=== PATIENT | female | born 1980 | race Caucasian/White ===

== ENCOUNTER → 2016-11-03 | Outpatient (CLI) | payer OTHER ==
[2016-11-03 09:02] VITALS: BP 142/91; PULSE 102; RESP 18; TEMP 97.9; BMI 52.2
--- NOTE | 2016-11-03 11:57 | P.GSHP ---
History of Present Illness H&P Date: 11/03/16 Chief Complaint: Morbid Obesity BMI 52.3 36 years old female with morbid obesity initial BMI 55.4, height 5 feet 7.5inches, weight 162.92 kgs (359.3 pounds) presents for bariatric surgery consultation. She has attended weight loss seminar and elected to undergo laparoscopic Cinda-en-Y gastric bypass. She has attempted nonsurgical weight loss with special diets and exercise regimen. She has lost some weight but is unable to maintain sustained results. Her comorbid conditions include obstructive sleep apnea on CPAP, hypothyroidism , fatty liver disease , migraine , Type 2 DM ,hypertensionand depression. She works at [employer]. He has given up fast food and is preparing home meals. No increase in physical activity since last visit. She has undergone 6 months supervised weight loss. She had H. Pylori positive and was treated with Prevpak. Initially evaluated in 2013 at the bariatric center. Her goal weight is between 182 -200 pounds Preoperative visit #1, 09/25/2014, weight 162.92 kgs, BMI 55.4 Preoperative visit # 2, 01/22/2015 , weight 162.64 kgs, BMI 55.3 Preoperative visit # 3, 11/03/2016 , [id number] kgs, BMI 52.3 - Review of Systems Comment: Constitutional: Denies fever, weight loss or loss of appetite HEENT: No difficulty in vision or hearing. Denies dysphagia. Cardiovascular: Denies chest pain, palpitations, dizziness, shortness of breath. Respiratory: No history of asthma . She has sleep apnea on CPAP Gastrointestinal: No recent change in bowel habits, no abdominal pain, no nausea or vomiting. She has intermittent reflux symptoms and undergone laparoscopic cholecystectomy Integumentary: Long-standing skin changes with intermittent skin breakdown in bilateral lower extremities. Genitourinary: No urinary incontinence, hematuria or dysuria Neurologic: No seizures, denies weakness in upper or lower extremities. History of migraines Musculoskeletal: No back pain or joint pain Psychiatry: Known history of depression, no suicidal ideation, no anxiety or psychosis Past Medical History Past Medical History: GERD/Reflux, Sleep Apnea/CPAP/BIPAP, Thyroid Disorder Additional Past Medical History / Comment(s): migraines, HSV History of Any Multi-Drug Resistant Organisms: None Reported Past Surgical History: Section, Cholecystectomy, Tubal Ligation Past Anesthesia/Blood Transfusion Reactions: Motion Sickness, Postoperative Nausea & Vomiting (PONV) Additional Past Anesthesia/Blood Transfusion Reaction / Comment(s): STATES NAUSEA WITH PAIN MEDS Past Psychological History: Depression Smoking Status: Never smoker Past Alcohol Use History: None Reported Past Drug Use History: None Reported - Past Family History Father Family Medical History: No Reported History Additional Family Medical History / Comment(s): of kidney failure Medications and Allergies Home Medications Medication Instructions Recorded Confirmed Type Pramipexole [Mirapex] 0.125 mg PO HS 10/10/14 11/03/16 History Ergocalciferol [Vitamin D2 50,000 unit PO QMONTH 01/22/15 11/03/16 History (DRISDOL)] Albuterol Sulfate [Proair Hfa] 1 - 2 puff INHALATION RT-Q6H PRN 07/22/16 History INSULIN LISPRO (HumaLOG) [HumaLOG] 20 units SQ TID-W/MEALS 07/22/16 11/03/16 History Insulin Glargine [Lantus] 120 unit SQ HS 07/22/16 11/03/16 History Lansoprazole [Prevacid] 30 mg PO DAILY 07/22/16 11/03/16 History Levothyroxine Sodium [Synthroid] 400 mcg PO DAILY 07/22/16 11/03/16 History Lisinopril [Zestril] 10 mg PO DAILY 07/22/16 11/03/16 History Vortioxetine Hydrobromide 20 mg PO DAILY 07/22/16 11/03/16 History [Trintellix] traMADol HCL [Ultram] 50 mg PO BID 07/22/16 11/03/16 History Lurasidone HCl [Latuda] 60 mg PO DAILY 11/03/16 11/03/16 History Nortriptyline [Pamelor] 50 mg PO DAILY 11/03/16 11/03/16 History Allergies Allergy/AdvReac Type Severity Reaction Status Date / Time No Known Allergies Allergy Verified 11/03/16 08:52 Surgical - Exam Vital Signs Temp Pulse Resp BP 97.9 F 102 H 18 142/91 11/03/16 08:51 11/03/16 08:51 11/03/16 08:51 11/03/16 08:51 General: Patient is alert and oriented to time, place and person and cooperative with exam. She is not in acute distress. HEENT: No pallor, no icterus, no thyroid enlargement, no cervical lymphadenopathy. Chest: Bilateral equal breath sounds present. No wheezes, no crackles. Cardiovascular: Regular rate and rhythm. Abdomen: Soft, nontender, nondistended. Well-healed surgical scars from lap gabby and Csection Integumentary: No active ulcers or discharge. Neurologic: Cranial nerves II-XII intact. Strength upper and lower extremities 5/5. No focal neurologic deficits. Gait is normal. Psychiatric: No anxiety or psychosis. No suicidal thoughts. Social history: She has 2 living children and has good social support system Assessment and Plan (1) Type 2 diabetes mellitus Status: Acute (2) Migraine Status: Acute (3) Sleep apnea Status: Acute (4) Hypothyroidism Status: Chronic (5) Morbid obesity with body mass index of 50 or higher Status: Chronic (6) H. pylori infection Status: Acute (7) Hypertension Status: Acute (8) Depression Status: Acute Plan: 1. A detailed discussion was held about the risks, benefits and potential complications of laparoscopic Cinda-en-Y gastric bypass including bleeding, infection, anastomosis leak, stenosis, DVT and PE. Patient demonstrated understanding and willing to undergo the procedure. Patient was explained about high-protein liquid diet 2 weeks prior to surgery 2. Formal Dietitian consult pending. I discussed about reducing the portion size, limiting refined carbohydrates and sugar and increase protein intake 3. Esophagogastroduodenoscopy - [place] 1 hiatal hernia. 4. Vitamin D deficiency. Taking supplements 5. Sleep study reviewed- adjust CPAP machine 6. Psychiatrist/ psychologist's recommendations pending 7. VTE risk score is 10. Patient will need perioperative and postoperative prophylactic low molecule weight heparin for VTE prophylaxis 8. Hypothyroidism- Management as per primary 9. Repeat labs. Stool for H. Pylori antigen 10 Tentaive surgery date November 2016
== END | disposition home or self-care (01) ==
LOC: BARWHC3 08:11
PROVIDERS: ATTEND Surgery
DX: Z01.818 Encounter for other preprocedural examination (principal); E66.01 Morbid (severe) obesity due to excess calories; Z68.43 Body mass index [BMI] 50.0-59.9, adult; E11.9 Type 2 diabetes mellitus without complications; G43.909 Migraine, unspecified, not intractable, without status migrainosus; G47.30 Sleep apnea, unspecified; Z99.89 Dependence on other enabling machines and devices; E03.9 Hypothyroidism, unspecified; A04.8 Other specified bacterial intestinal infections; I10 Essential (primary) hypertension; F32.9 Major depressive disorder, single episode, unspecified; Z79.899 Other long term (current) drug therapy; Z79.4 Long term (current) use of insulin
CPT/HCPCS: 99211

== ENCOUNTER → 2016-11-08 | Outpatient (CLI) | payer OTHER ==
[2016-11-08 11:16] LABS: EKG EKG PERFORMED
[2016-11-08 11:41] LABS: CH 23.4; CHCM 31.1; HCT 38.5 % (34.0-46.0); HDW 3.25; HGB 11.8 gm/dL (11.4-16.0); Hypochromasia Moderate; MCH 23.2 pg (25.0-35.0); MCHC 30.7 g/dL (31.0-37.0); MCV 75.5 fL (80.0-100.0); Mean Platelet Volume 7.9; Microcytosis Slight; RDW 15.9 % (11.5-15.5)
[2016-11-08 12:06] LABS: ALT 81 U/L (9-52); AST 79 U/L (14-36); Alkaline Phosphatase 136 U/L (38-126); Anion Gap 11 mmol/L; Blood Urea Nitrogen 9 mg/dL (7-17); Carbon Dioxide 28 mmol/L (22-30); Chloride 99 mmol/L (98-107); Cholesterol 241 mg/dL (<200); Glucose 161 mg/dL (74-99); HDL Cholesterol 55 mg/dL (40-60); Iron 40 ug/dL (37-170); Non-African American GFR(MDRD) >60 (>60 ml/min/1.73 sqM); Potassium 4.6 mmol/L (3.5-5.1); Sodium 138 mmol/L (137-145); Total Bilirubin 1.6 mg/dL (0.2-1.3); Total Protein 7.7 g/dL (6.3-8.2); Triglycerides 118 mg/dL (<150)
[2016-11-08 12:15] LABS: % Iron Saturation 9.3 % (20-50); Total Iron Binding Capacity 431 ug/dL (265-497)
[2016-11-08 13:10] LABS: Vitamin B12 574 pg/mL (239-931)
[2016-11-08 13:31] LABS: Hemoglobin A1C 8.9 % (4.2-6.1)
== END | disposition home or self-care (01) ==
LOC: LABWHC1 10:52
PROVIDERS: ATTEND Surgery
DX: E89.1 Postprocedural hypoinsulinemia (principal); D50.8 Other iron deficiency anemias; E44.0 Moderate protein-calorie malnutrition; E55.9 Vitamin D deficiency, unspecified; E11.9 Type 2 diabetes mellitus without complications; G47.30 Sleep apnea, unspecified; E66.01 Morbid (severe) obesity due to excess calories; Z68.43 Body mass index [BMI] 50.0-59.9, adult
CPT/HCPCS: 36415; 80053; 80061; 82306; 82607; 82728; 82746; 83036; 83540; 83550; 84425; 84443; 85027; 93005

== ENCOUNTER → 2016-11-24 | Outpatient (CLI) | payer OTHER ==
[2016-11-24 09:04] VITALS: BP 144/66; PULSE 886; RESP 18; TEMP 98.1; BMI 52.1
--- NOTE | 2016-11-24 10:22 | P.GSHP ---
History of Present Illness H&P Date: 11/24/16 Chief Complaint: Morbid Obesity BMI 52.3 36 years old female with morbid obesity initial BMI 55.4, height 5 feet 7.5inches, weight 162.92 kgs (359.3 pounds) presents for bariatric surgery consultation. She has attended weight loss seminar and elected to undergo laparoscopic Cinda-en-Y gastric bypass. She has attempted nonsurgical weight loss with special diets and exercise regimen. She has lost some weight but is unable to maintain sustained results. Her comorbid conditions include obstructive sleep apnea on CPAP, hypothyroidism , fatty liver disease , migraine , Type 2 DM ,hypertensionand depression. She works at [employer]. He has given up fast food and is preparing home meals. No increase in physical activity since last visit. She has undergone 6 months supervised weight loss. S he had H. Pylori positive and was treated with Prevpak. Stool for h.pylori negative.She has been non compliant with her thyroid medications. Sister mentions her thyroid hormone has been persistently low over many years Initially evaluated in 2013 at the bariatric center. Her goal weight is between 182 -200 pounds Preoperative visit #1, 09/25/2014, weight 162.92 kgs, BMI 55.4 Preoperative visit # 2, 01/22/2015 , weight 162.64 kgs, BMI 55.3 Preoperative visit # 3, 11/03/2016 , [id number] kgs, BMI 52.3 Preoperative visit # 4, 11/24/2016 , [id number] kgs, BMI 52.1 Review of Systems Constitutional: Denies fever, weight loss or loss of appetite HEENT: No difficulty in vision or hearing. Denies dysphagia. Cardiovascular: Denies chest pain, palpitations, dizziness, shortness of breath. Respiratory: No history of asthma . She has sleep apnea on CPAP Gastrointestinal: No recent change in bowel habits, no abdominal pain, no nausea or vomiting. She has intermittent reflux symptoms and undergone laparoscopic cholecystectomy Integumentary: Long-standing skin changes with intermittent skin breakdown in bilateral lower extremities. Genitourinary: No urinary incontinence, hematuria or dysuria Neurologic: No seizures, denies weakness in upper or lower extremities. History of migraines Musculoskeletal: No back pain or joint pain Psychiatry: Known history of depression, no suicidal ideation, no anxiety or psychosis Past Medical History Past Medical History: GERD/Reflux, Sleep Apnea/CPAP/BIPAP, Thyroid Disorder Additional Past Medical History / Comment(s): migraines, HSV History of Any Multi-Drug Resistant Organisms: None Reported Past Surgical History: Section, Cholecystectomy, Tubal Ligation Past Anesthesia/Blood Transfusion Reactions: Motion Sickness, Postoperative Nausea & Vomiting (PONV) Additional Past Anesthesia/Blood Transfusion Reaction / Comment(s): STATES NAUSEA WITH PAIN MEDS Past Psychological History: Depression Smoking Status: Never smoker Past Alcohol Use History: None Reported Past Drug Use History: None Reported - Past Family History Father Family Medical History: No Reported History Additional Family Medical History / Comment(s): of kidney failure Medications and Allergies Home Medications Medication Instructions Recorded Confirmed Type Pramipexole [Mirapex] 0.125 mg PO HS 10/10/14 11/03/16 History Ergocalciferol [Vitamin D2 50,000 unit PO QMONTH 01/22/15 11/03/16 History (DRISDOL)] Albuterol Sulfate [Proair Hfa] 1 - 2 puff INHALATION RT-Q6H PRN 07/22/16 History INSULIN LISPRO (HumaLOG) [HumaLOG] 20 units SQ TID-W/MEALS 07/22/16 11/03/16 History Insulin Glargine [Lantus] 120 unit SQ HS 07/22/16 11/03/16 History Lansoprazole [Prevacid] 30 mg PO DAILY 07/22/16 11/03/16 History Levothyroxine Sodium [Synthroid] 400 mcg PO DAILY 07/22/16 11/03/16 History Lisinopril [Zestril] 10 mg PO DAILY 07/22/16 11/03/16 History Vortioxetine Hydrobromide 20 mg PO DAILY 07/22/16 11/03/16 History [Trintellix] traMADol HCL [Ultram] 50 mg PO BID 07/22/16 11/03/16 History Lurasidone HCl [Latuda] 60 mg PO DAILY 11/03/16 11/03/16 History Nortriptyline [Pamelor] 50 mg PO DAILY 11/03/16 11/03/16 History Allergies Allergy/AdvReac Type Severity Reaction Status Date / Time No Known Allergies Allergy Verified 11/03/16 08:52 Past Medical History Past Medical History: Diabetes Mellitus, GERD/Reflux, Sleep Apnea/CPAP/BIPAP, Thyroid Disorder Additional Past Medical History / Comment(s): migraines, HSV History of Any Multi-Drug Resistant Organisms: None Reported Past Surgical History: Section, Cholecystectomy, Tubal Ligation Past Anesthesia/Blood Transfusion Reactions: Motion Sickness, Postoperative Nausea & Vomiting (PONV) Additional Past Anesthesia/Blood Transfusion Reaction / Comment(s): STATES NAUSEA WITH PAIN MEDS Past Psychological History: Depression Smoking Status: Never smoker Past Alcohol Use History: None Reported Past Drug Use History: None Reported - Past Family History Father Family Medical History: No Reported History Additional Family Medical History / Comment(s): of kidney failure Medications and Allergies Home Medications Medication Instructions Recorded Confirmed Type Pramipexole [Mirapex] 0.125 mg PO HS 10/10/14 11/24/16 History Ergocalciferol [Vitamin D2 50,000 unit PO QMONTH 01/22/15 11/24/16 History (DRISDOL)] Albuterol Sulfate [Proair Hfa] 1 - 2 puff INHALATION RT-Q6H PRN 07/22/16 History INSULIN LISPRO (HumaLOG) [HumaLOG] 20 units SQ TID-W/MEALS 07/22/16 11/24/16 History Insulin Glargine [Lantus] 120 unit SQ HS 07/22/16 11/24/16 History Lansoprazole [Prevacid] 30 mg PO DAILY 07/22/16 11/24/16 History Levothyroxine Sodium [Synthroid] 400 mcg PO DAILY 07/22/16 11/24/16 History Lisinopril [Zestril] 10 mg PO DAILY 07/22/16 11/24/16 History Vortioxetine Hydrobromide 20 mg PO DAILY 07/22/16 11/24/16 History [Trintellix] traMADol HCL [Ultram] 50 mg PO BID 07/22/16 11/24/16 History Lurasidone HCl [Latuda] 60 mg PO DAILY 11/03/16 11/24/16 History Nortriptyline [Pamelor] 50 mg PO DAILY 11/03/16 11/24/16 History Allergies Allergy/AdvReac Type Severity Reaction Status Date / Time No Known Allergies Allergy Verified 11/24/16 08:55 Surgical - Exam Vital Signs Temp Pulse Resp BP 98.1 F 886 H 18 144/66 11/24/16 08:58 11/24/16 08:58 11/24/16 08:58 11/24/16 08:58 General: Patient is alert and oriented to time, place and person and cooperative with exam. She is not in acute distress. HEENT: No pallor, no icterus, no thyroid enlargement, no cervical lymphadenopathy. Chest: Bilateral equal breath sounds present. No wheezes, no crackles. Cardiovascular: Regular rate and rhythm. Abdomen: Soft, nontender, nondistended. Well-healed surgical scars from lap gabby and Csection Integumentary: No active ulcers or discharge. Neurologic: Cranial nerves II-XII intact. Strength upper and lower extremities 5/5. No focal neurologic deficits. Gait is normal. Psychiatric: No anxiety or psychosis. No suicidal thoughts. Social history: She has 2 living children and has good social support system Assessment and Plan (1) Depression Status: Acute (2) Hypertension Status: Acute (3) Migraine Status: Acute (4) Sleep apnea Status: Acute (5) Type 2 diabetes mellitus Status: Acute (6) Hypothyroidism Status: Chronic (7) Morbid obesity with body mass index of 50 or higher Status: Chronic Plan: 1. A detailed discussion was held about the risks, benefits and potential complications of laparoscopic Cinda-en-Y gastric bypass including bleeding, infection, anastomosis leak, stenosis, DVT and PE. Patient demonstrated understanding and willing to undergo the procedure. Patient was explained about high-protein liquid diet 2 weeks prior to surgery 2. Formal Dietitian consult pending. I discussed about reducing the portion size, limiting refined carbohydrates and sugar and increase protein intake 3. Esophagogastroduodenoscopy - [place] 1 hiatal hernia. 4. Vitamin D deficiency. Taking supplements 30,000 Units weekly x 14 weeks 5. Sleep study reviewed- adjust CPAP machine 6. Psychiatrist/ psychologist's recommendations reviewed 7. VTE risk score is 10. Patient will need perioperative and postoperative prophylactic low molecule weight heparin for VTE prophylaxis 8. Refractory Hypothyroidism- Management as per primary- Referral given to bench worker binding in [place]. Please address this as uncorrected hypothyroidism will cause weight gain even after bariatric surgery 9. Cardiac clearance - Dr. Kate 10 Repeat CBC, CMP, TSH and Hba1c 11.Tentaive surgery date December 14, 2016
[2016-11-24 10:52] LABS: CH 23.4; HCT 38.3 % (34.0-46.0); HDW 3.26; HGB 11.8 gm/dL (11.4-16.0); Hypochromasia Moderate; MCH 23.4 pg (25.0-35.0); MCHC 30.9 g/dL (31.0-37.0); MCV 75.7 fL (80.0-100.0); Mean Platelet Volume 7.8; Microcytosis Slight; RBC 5.06 m/uL (3.80-5.40); RDW 15.4 % (11.5-15.5); WBC 7.6 k/uL (3.8-10.6)
[2016-11-24 11:13] LABS: ALT 59 U/L (9-52); AST 46 U/L (14-36); Alkaline Phosphatase 131 U/L (38-126); Anion Gap 11 mmol/L; Blood Urea Nitrogen 11 mg/dL (7-17); Calcium 8.9 mg/dL (8.4-10.2); Carbon Dioxide 26 mmol/L (22-30); Chloride 102 mmol/L (98-107); Glucose 170 mg/dL (74-99); Non-African American GFR(MDRD) >60 (>60 ml/min/1.73 sqM); Potassium 4.2 mmol/L (3.5-5.1); Sodium 139 mmol/L (137-145); Total Bilirubin 1.4 mg/dL (0.2-1.3); Total Protein 7.7 g/dL (6.3-8.2)
[2016-11-24 12:08] LABS: Hemoglobin A1C 8.7 % (4.2-6.1)
== END | disposition home or self-care (01) ==
LOC: BARWHC3 08:15
PROVIDERS: ATTEND Surgery
DX: Z01.818 Encounter for other preprocedural examination (principal); E66.01 Morbid (severe) obesity due to excess calories; Z68.43 Body mass index [BMI] 50.0-59.9, adult; E11.9 Type 2 diabetes mellitus without complications; Z79.4 Long term (current) use of insulin; F32.9 Major depressive disorder, single episode, unspecified; I10 Essential (primary) hypertension; G43.909 Migraine, unspecified, not intractable, without status migrainosus; G47.30 Sleep apnea, unspecified; E03.9 Hypothyroidism, unspecified; K21.9 Gastro-esophageal reflux disease without esophagitis; Z99.89 Dependence on other enabling machines and devices
CPT/HCPCS: 80053; 83036; 84443; 85027; G0463; 99211

== ENCOUNTER → 2016-12-14 | Outpatient (CLI) | payer OTHER ==
--- NOTE | 2016-12-14 19:36 | PN ---
This 36-year-old morbidly obese female patient has severe symptomatic obstructive sleep apnea. She has an AHI of 82 and she was initially treated with a CPAP pressure of 12 cm of water. During my last evaluation, the patient was having some difficulties in tolerating the CPAP machine, and her compliance was suboptimal. I was in the process of working with this patient to improve her tolerability and compliance; however, she was lost to followup for the past 1-1/2 years. She is coming in today for further advice. She is still symptomatic. She has not been able to use her CPAP on a regular basis. She is using a Mirage FX nose mask, which she thinks is uncomfortable, as air is leaking around the mask and around her eyes. She also has a worn-out tube which has a hole, and obviously it is leaking. She is interested in bariatric surgery. She is also interested in going back on her CPAP machine, knowing that she is still symptomatic, hypersomnolent and sleepy. I reevaluated this patient today in the office. I checked various masks, and I thought the AirFit N10 nose mask is the best type for this patient. This will give her the best seal and hopefully improve her compliance. Based on that, a prescription was given out to [facility]. I will also renew all of her CPAP supplies. The patient has no other complaints otherwise for now. Her interval history is negative for any new-onset medical problems or issues. BP is 145/88, pulse 104, respiration 16, temperature 97.4, saturation 97% on room air. Weight is 321. Height is 5 feet 7 inches. BMI is 50. GENERAL APPEARANCE: Obese, calm, comfortable. HEENT: Short neck. Crowding of posterior pharynx. No goiter or neck masses. LUNGS: Diminished breath sounds bilaterally. HEART: Sounds are regular rate and rhythm. Normal S1, S2. No S3. No S4. No murmurs. ABDOMEN: Soft, nontender. No organomegaly. Organs cannot be accurately palpated, as the patient is morbidly obese. EXTREMITIES: There is no edema. No cyanosis or clubbing. IMPRESSION: 1. Severe symptomatic obstructive sleep apnea with an AHI of 82. The patient is having difficulty tolerating her CPAP machine. She was set at a pressure of 12 cm of water and she was given earlier a Mirage FX nose pillow. 2. Excessive hypersomnia. 3. Obesity with a body mass index of 50. 4. Depression. 5. Hypothyroidism. PLAN: 1. Switch this patient to an automatic mode on her CPAP machine. I will give her a minimum pressure of 4 and maximum pressure of 12 on her Auto CPAP unit, and this will allow the patient to utilize lower pressures if possible. 2. Switch this patient to an AirFit N10 nose mask. 3. Encourage weight loss. 4. Encourage becoming more compliant with CPAP therapy. 5. See me back here in the sleep center in 6 months' time in followup for a compliancy recheck.
== END | disposition home or self-care (01) ==
LOC: SLEEP 15:25
PROVIDERS: ATTEND Internal Medicine Critical Care Medicine
DX: G47.33 Obstructive sleep apnea (adult) (pediatric) (principal); G47.10 Hypersomnia, unspecified; E66.9 Obesity, unspecified; Z68.43 Body mass index [BMI] 50.0-59.9, adult; F32.9 Major depressive disorder, single episode, unspecified; E03.9 Hypothyroidism, unspecified

== ENCOUNTER 2016-12-16 11:48 | Inpatient (IN) | payer OTHER ==
[~2016-12-16 11:48] MED LIST: AMPICILLIN-SULBACTAM 3 GM in SODIUM CHLORIDE 0.9% 100 ML IVPB ONE; CHLORHEXIDINE GLUCONATE 15 ML CUP MUCOUS MEM ONE; DEXAMETHASONE SOD PHOSPHATE 10 MG/ML 1 ML VIAL IV ONE; ENOXAPARIN 40 MG/0.4 ML SYRINGE SQ STA; HYDROmorphone 1 MG/ML 1 ML SYRINGE IVP PRN; LIDOCAINE 1% 20 ML VIAL (10MG/ML) FOR IV START INTRADERMA PRN; MIDAZOLAM 2 MG/2 ML VIAL IV PRN; ONDANSETRON 4 MG/2 ML VIAL IVP ONE; PANTOPRAZOLE 40 MG/10 ML VIAL IV STA; SCOPOLAMINE 1.5MG/72HR PATCH TRANSDERM ONE; ceFAZolin 3 GM in SODIUM CHLORIDE 0.9% 100 ML IVPB ONE
[2016-12-16] MEDS: LACTATED RINGERS 1,000 ML IV SCH (12:22)
[2016-12-16 12:41] LABS: Glucose,Whole Blood 135 mg/dL (75-99)
[2016-12-16] MEDS ORDERED: SUCCINYLCHOLINE CHLORIDE 100 MG/5 ML SYR IV ONE (13:15)
[2016-12-16] MEDS ORDERED: DEXAMETHASONE SOD PHOS (MDV) 100 MG/10 ML VIAL ONE (13:15)
[2016-12-16] MEDS ORDERED: MIDAZOLAM 2 MG/2 ML VIAL ONE (13:15)
[2016-12-16] MEDS ORDERED: ONDANSETRON 4 MG/2 ML VIAL ONE (13:15)
[2016-12-16] MEDS ORDERED: PROPOFOL 10 MG/ML 20 ML VIAL IV ONE (13:15)
[2016-12-16] MEDS ORDERED: LIDOCAINE 1% INJ 10MG/ML (20 ML MDV) ONE (13:15)
[2016-12-16] MEDS ORDERED: HYDROmorphone (PF) 1 MG/ML ONE (13:15)
[2016-12-16] MEDS ORDERED: GLYCOPYRROLATE 0.2 MG/ML 2 ML VIAL ONE (13:15)
[2016-12-16] MEDS ORDERED: ROCURONIUM BROMIDE 10 MG/ML 10 ML VIAL IV ONE (13:15)
[2016-12-16] MEDS ORDERED: NEOSTIGMINE 1 MG/ML 10 ML VIAL ONE (13:15)
[2016-12-16] MEDS ORDERED: LABETALOL 5 MG/ML VIAL MDV ONE (13:15)
[2016-12-16] MEDS ORDERED: METOPROLOL TARTRATE 5 MG/5 ML VIAL IVP ONE (13:15)
[2016-12-16] MEDS ORDERED: fentaNYL (PF) 50 MCG/ML 2 ML AMP ONE (13:15)
[2016-12-16] MEDS ORDERED: KETOROLAC 30 MG/ML 1 ML VIAL ONE (13:15)
[2016-12-16] MEDS ORDERED: KETAMINE 10 MG/ML 20 ML VIAL ONE (13:15)
[2016-12-16] MEDS ORDERED: LACTATED RINGERS 1,000 ML IV ONE ×3 (13:45→17:03)
[2016-12-16] MEDS ORDERED: BUPIVACAIN-EPI 0.25%-1:200,000 30 ML VIAL SQ ONE (13:47)
--- NOTE | 2016-12-16 18:52 | P.PCN ---
Date of Procedure: 12/16/16 Description of Procedure: PREOPERATIVE DIAGNOSIS: s/p Cinda-en-y gastric bypass. Morbid obesity. Gastroesophageal reflux disease. POSTOPERATIVE DIAGNOSIS: s/p Cinda-en-y gastric bypass. Morbid obesity. Gastroesophageal reflux disease. Foreign body gastric pouch OPERATION: Esophagogastroscopy with foreign body removal. Esophagogastrojejunoscopy, intraoperative. SURGEON: Theresa Nye MD ANESTHESIA: GETA INDICATIONS: The patient is a 36-year-old female who presents for a gastric bypass with Dr. Blanca. On request of Dr. Blanca, an intraoperative esophagogastroscopy followed by esophagogastrojejunoscopy was requested with benefits and risks described by attending surgeon. DESCRIPTION: Please see operative report of Dr. Blanca for gastric bypass. After creation of the gastric pouch, initially a 25 mm Covidien Orvil was placed along the posterior oropharynx down to the distal esophagus. Despite several attempts to place the Orvil, an endoscopic placement of the Orvil was proposed. I then went to the head of the bed whereby an Olympus gastroscope was passed along the posterior oropharynx down to distal esophagus. Using a laparoscope, the light of the gastroscope could be found along the inferior edge of the gastric pouch anterior to the staple line. An incomplete gastrotomy was identified. Using a cold forceps biopsy, the biopsy forceps was placed through the scope under direct utilization and actually penetrated through the initial gastrotomy. Via the abdomen, Dr. Blanca placed the snare through a 12-mm trocar and entered into the abdomen. The snare was navigated to the gastric pouch. Using the cold forceps biopsy, the snare was pulled through the gastric pouch and into the mouth. The the tip of the tubing of the Doon was then anchored using 0-Neurolon and secured to the snare with suture. The Orvil was then carefully guided through the posterior oropharynx via the esophagus and through the gastrotomy to complete the gastrojejunostomy portion of the gastric bypass. The snare was divided using endoscopic scissors by Dr. Blanca and the snare was removed from the abdomen. Upon completion of the gastric bypass, I went ahead the bed to perform an intraoperative EGJ. The scope was navigated down to distal esophagus. The pouch had minimal blood which was aspirated from the pouch. The stoma of the anastomosis was widely patent. No evidence of leak was found. This concluded the endoscopy portion of the case. The patient tolerated the procedure well. FINDINGS: Negative leak test. Patent 25 mm gastrojejunal anastomosis.
[2016-12-16] MEDS ORDERED: SIMETHICONE 40 MG/0.6 ML DROPS 2,000 MG/30 ML BOTTLE PO PRN (19:13)
[2016-12-16] MEDS ORDERED: NALOXONE 0.4 MG/ML 1 ML VIAL IV PRN (19:13)
[2016-12-16] MEDS ORDERED: ONDANSETRON 4 MG/2 ML VIAL IVP PRN (19:13)
[2016-12-16] MEDS ORDERED: HYOSCYAMINE ORAL DROPS 1.875 MG/15 ML BOTTLE PO PRN (19:13)
--- NOTE | 2016-12-16 19:22 | P.OP ---
Date of Procedure: 12/16/16 Preoperative Diagnosis: Morbid obesity, BMI 48.6, obstructive sleep apnea on CPAP, hypothyroidism , fatty liver disease , migraine , Type 2 DM , essential hypertension and depression Postoperative Diagnosis: Same Procedure(s) Performed: Laparoscopic antecolic antegastric bypass >200 cm of small bowel bypassed Intraop EGJ Implants: NA Anesthesia: MAURAA Surgeon: Celsa Blanca Ring Cutter Lathe Operator #1: Theresa Nye Estimated Blood Loss (ml): 30 Pathology: none sent Condition: stable Disposition: PACU Indications for Procedure: 37 years old female with morbid obesity initial BMI more than 50 with multiple comorbidities including obstructive sleep apnea on CPAP, hypothyroidism , fatty liver disease , migraine , Type 2 DM ,hypertension and depression presents for laparoscopic Cinda-en-Y gastric bypass possible open. Operative Findings: >200 cm of small bowel bypassed Description of Procedure: The patient was brought to the operating room and placed in supine position with both arms out. General anesthesia with endotracheal intubation was performed as per anesthesia team. A Rg catheter was inserted using sterile aseptic precautions. Bilateral lower extremity SCDs were placed. Patient was secured to the operating table using to secure straps and a footboard was placed. Chlorhexidine was used to prep the skin followed by sterile drapes and Ioban. A timeout was performed to verify correct patient and correct procedure. Patient was confirmed to receive perioperative IV antibiotics and Lovenox subcutaneous injection for VTE prophylaxis. A 1.5 cm skin incision was made in the left anterior axillary line below the costal margin and pneumoperitoneum was established to a pressure of 15 mm of Hg using a Veress needle. Patient tolerated the pneumoperitoneum well. A 10 mm trocar was loaded on a 5 mm 30 laparoscope and peritoneal cavity was entered using the Optiview technique. Additional 10 mm trocar was placed inferior and left of the umbilicus for a camera . Two 10 mm trocars working ports were placed : one at the level of falciform and the other in right lower quadrant. The abdominal cavity was inspected. Attention was directed towards creation of jejunojejunostomy. The omentum was reflected towards the upper abdomen and the transverse colon identified. The transverse mesocolon was elevated and ligament of Treitz identified. The small bowel was run 65 cm distal to the ligament of Treitz and was divided using Ethicon stapler 60 white load. There was noted bleeding noted from the cut end of the mesentery which was controlled with application of endoclips. A [place] drain was attached to the distal limb. The small bowel was run 160 cm distally from this point. It was oriented in C- configuration to avoid any torsion or kink. A seromuscular stitch of 3-0 silk was placed between the BP limb and the Cinda limb to act as a traction suture. Controlled enterotomy was created in either small bowel limb using monopolar function of LigaSure advance. Care was taken not to backwall the bowel. Covidien stapler 60 ramirez load was fired in antegrade direction to create a [id number] jejunojejunostomy. Additional seromuscular stitch of 3-0 silk was placed which acted as a distal stay suture . Covidien stapler 45 ramirez load was fired in retrograde direction to create a 90 mm [id number] anastomosis. The 2 stay sutures were pulled up and final enterotomy was closed using Covidien stapler 60 ramriez load. The anastomosis was patent and without any tension. There was some bleeding noted from the staple line which was controlled with endoclips. The greater omentum was divided using LigaSure . Patient was then placed in reverse Trendelenburg. A 5 mm incision was made in the epigastrium to insert the liver retractor to retract the left lobe of the liver. There were scar tissue and stitches from prior lap band surgery. Decision was made to go distal to this suture line to create a long narrow pouch The angle of His was bluntly mobilized using retrogastric tunneling device .Fenestrated graspers were used to bluntly dissect and create retrogastric tunnel. Covidien 60 staple purple load was fired . Additional two purple 60mm loads were used to create a 30 ml gastric pouch . A 25 mm Orvil was passed per orally by the anesthesia team. The orogastric blunt tip of the Orvil was positioned anterior to the staple line. A controlled opening was made in the gastric pouch using the monopolar function and Orvil tip was exteriorized. The orogastric tube was pulled without any tension till the Orvil stapler was identified. The suture was cut and the remaining tube was removed from the abdomen. The previously placed Yehuda drain was identified and the Cinda limb was brought up to the gastric pouch without any undue tension. The small bowel was opened up and left upper quadrant trocar site was upsized to a 15 mm. The 25 mm EEA was inserted into the abdomen after dilating the track with Puja clamp. The EEA was easily inserted via the cut end of the Cinda limb. The stapler was gradually opened till the orange ring was identified. The EEA stapler was fired after both ends of the stapler were locked in position and closed. The EEA was then removed from the abdomen. Both the anastomotic donuts were complete. A 60 mm Covidien ramirez white load was used to divide the open end of the Cinda limb. This segment of the small bowel along with Bre[place] drain was placed in an Endo Catch bag and was removed from the abdomen. A 15 mm balloon trocar was inserted to re-create pneumoperitoneum. The gastrojejunostomy anastomosis not show any evidence of kink or torsion. Using continuous sutures of 3-0 silk, the Marquez defect between the transverse mesocolon and Cinda limb was closed. The C loop configuration of Cinda limb was checked. The mesentery defect between the jejunojejunostomy was closed using continuous sutures of 3-0 silk. This is to prevent potential internal hernias. An empty staple cartridge was placed distal to the gastrojejunostomy in the Cinda limb. Dr. Nye proceeded with esophagogastrojejunoscopy. The abdominal cavity was filled with normal saline. No evidence of staple line bleeding. No anastomotic stricture. No air leak identified. The anastomosis was widely patent. The scope was then removed after suctioning the excess air. Tisseal was applied over the staple line. The 15 mm trocar site was closed with 2 trans-fascial stitches of 0 Vicryl which was placed using a Vinay Shyla device. The trocar site was copiously irrigated with 1 L of normal saline. All the trocar sites were closed with interrupted sutures of 3-0 Vicryl followed by running subcuticular stitches of 4-0 Monocryl. Dermabond skin glue was applied. The sponge, instrument and needle count were correct x2. Patient tolerated the procedure well and was taken to post anesthesia care unit in stable condition
[2016-12-16 19:27] LABS: Glucose,Whole Blood 214 mg/dL (75-99)
[2016-12-16] MEDS ORDERED: LABETALOL SYRINGE 5 MG/ML IVP ONE (19:34)
[2016-12-16] MEDS ORDERED: INSULIN LISPRO (humaLOG) 300 UNIT/3 ML VIAL SQ ONE (19:38)
[2016-12-16 20:35] VITALS: BMI 48.6
[2016-12-16] MEDS: ALBUTEROL NEBULIZED 2.5 MG/3 ML INHALATION SCH (21:03)
[2016-12-16] MEDS: HYDROmorphone 2 MG/ML 1 ML SYRINGE IVP PRN (22:34)
[2016-12-16] MEDS: 0.9% NACL WITH KCL 20 MEQ/L 1,000 ML IV SCH (23:55)
[2016-12-17 01:20] LABS: Glucose,Whole Blood 215 mg/dL (75-99)
[2016-12-17] MEDS: ACETAMINOPHEN IV (For NPO) 1,000 MG in EMPTY BAG 1 BAG IVPB SCH ×5 (01:20→23:44)
[2016-12-17] MEDS: INSULIN LISPRO (humaLOG) 300 UNIT/3 ML VIAL SQ SCH ×5 (01:25→21:30)
[2016-12-17] MEDS: HYDROmorphone 2 MG/ML 1 ML SYRINGE IVP PRN ×2 (01:33→21:28)
[2016-12-17] MEDS: 0.9% NACL WITH KCL 20 MEQ/L 1,000 ML IV SCH ×2 (02:54→16:31)
[2016-12-17 06:03] LABS: Glucose,Whole Blood 213 mg/dL (75-99)
[2016-12-17] MEDS: LACTATED RINGERS 1,000 ML IV SCH ×2 (06:12→16:45)
[2016-12-17 07:50] LABS: Anisocytosis Slight; Basophils % (A) 0 %; CH 24.4; CHCM 31.6; Eosinophils % (A) 0 %; HDW 3.13; HGB 11.1 gm/dL (11.4-16.0); Hypochromasia Slight; Luc # (Auto) 0.18; Luc % (Auto) 2; Lymphocytes % (A) 9 %; MCH 24.7 pg (25.0-35.0); MCHC 31.8 g/dL (31.0-37.0); MCV 77.6 fL (80.0-100.0); Mean Platelet Volume 8.3; Microcytosis Slight; Monocytes # (A) 0.4 k/uL (0-1.0); Monocytes % (A) 4 %; Neutrophils # (A) 9.5 k/uL (1.3-7.7); Neutrophils % (A) 85 %; RBC 4.51 m/uL (3.80-5.40); RDW 16.3 % (11.5-15.5); WBC 11.1 k/uL (3.8-10.6); WBC (Perox) 11.54
[2016-12-17 08:03] LABS: Anion Gap 11 mmol/L; Blood Urea Nitrogen 10 mg/dL (7-17); Calcium 8.3 mg/dL (8.4-10.2); Carbon Dioxide 24 mmol/L (22-30); Chloride 103 mmol/L (98-107); Magnesium 1.4 mg/dL (1.6-2.3); Non-African American GFR(MDRD) >60 (>60 ml/min/1.73 sqM); Phosphorous 3.6 mg/dL (2.5-4.5); Potassium 4.7 mmol/L (3.5-5.1); Sodium 138 mmol/L (137-145)
[2016-12-17] MEDS: ALBUTEROL NEBULIZED 2.5 MG/3 ML INHALATION SCH ×4 (08:28→19:20)
--- NOTE | 2016-12-17 08:43 | FL ---
EXAMINATION TYPE: FL UGI DATE OF EXAM: 12/17/2016 8:28 AM LIMITED UGI: CLINICAL HISTORY: Morbid Obesity, Cinda-en-Y surgery yesterday. TECHNIQUE: Limited UGI is performed utilizing 50 oz of Omnipaque 350. A total of 55 seconds of fluor oscopic time was utilized during procedure. COMPARISON: None. FINDINGS: The patient swallowed contrast without difficulty or delay. Esophageal peristalsis and mo tility are within normal limits. There is good flow of contrast along the diaphragmatic hiatus throu gh the remnant stomach and into the efferent small bowel loop. Patient remains asymptomatic. There is no evidence of contrast extravasation to suggest leak. IMPRESSION: No evidence of leak or significant obstruction status post Cinda-en-Y gastric surgery yest lisa.
[2016-12-17] MEDS: ENOXAPARIN 40 MG/0.4 ML SYRINGE SQ SCH ×2 (08:55→21:29)
[2016-12-17] MEDS ORDERED: PANTOPRAZOLE 40 MG/10 ML VIAL IV SCH (09:00)
[2016-12-17] MEDS: HYDROcodone/APAP 15 ML SOLUTION PO PRN ×2 (09:06→15:54)
[2016-12-17 12:29] LABS: Hemoglobin A1C 7.5 % (4.2-6.1)
[2016-12-17 12:42] LABS: Glucose,Whole Blood 194 mg/dL (75-99)
[2016-12-17] MEDS ORDERED: BISACODYL 10 MG SUPP RECTAL STA (16:13)
[2016-12-17 17:02] LABS: Glucose,Whole Blood 205 mg/dL (75-99)
[2016-12-17] MEDS: MAGNESIUM SULFATE-D5W PMX 1 GM in DEXTROSE/WATER 1 100ML.BAG IVPB SCH ×2 (18:32→21:47)
[2016-12-17 21:21] LABS: Glucose,Whole Blood 191 mg/dL (75-99)
[2016-12-17] MEDS ORDERED: LEVOTHYROXINE SODIUM 350 MCG PO SCH (22:00)
[2016-12-17] MEDS ORDERED: NON-FORMULARY DRUG (Vortioxetine Hydrobromide [Trintellix] 20 MG) PO SCH (22:00)
[2016-12-17] MEDS: INSULIN GLARGINE 100 UNIT/ML 10 ML VIAL SQ SCH (23:42)
[2016-12-17] MEDS: LURASIDONE 40 MG TAB PO SCH (23:43)
[2016-12-17] MEDS: PRAMIPEXOLE 0.125 MG TAB PO SCH (23:44)
[2016-12-18] MEDS: HYDROcodone/APAP 15 ML SOLUTION PO PRN (05:34)
[2016-12-18] MEDS: LEVOTHYROXINE 100 MCG TAB PO SCH (05:36)
[2016-12-18] MEDS: LACTATED RINGERS 1,000 ML IV SCH ×2 (05:37→10:31)
[2016-12-18 07:04] LABS: Glucose,Whole Blood 179 mg/dL (75-99)
[2016-12-18 08:03] LABS: ALT 206 U/L (9-52); AST 304 U/L (14-36); Alkaline Phosphatase 78 U/L (38-126); Anion Gap 8 mmol/L; Blood Urea Nitrogen 5 mg/dL (7-17); Calcium 7.7 mg/dL (8.4-10.2); Carbon Dioxide 26 mmol/L (22-30); Chloride 104 mmol/L (98-107); Glucose 176 mg/dL (74-99); Non-African American GFR(MDRD) >60 (>60 ml/min/1.73 sqM); Potassium 4.2 mmol/L (3.5-5.1); Sodium 138 mmol/L (137-145); Total Bilirubin 2.2 mg/dL (0.2-1.3); Total Protein 5.9 g/dL (6.3-8.2)
[2016-12-18] MEDS: ALBUTEROL NEBULIZED 2.5 MG/3 ML INHALATION SCH ×4 (08:52→20:22)
[2016-12-18 09:01] LABS: Basophils % (A) 0 %; CH 23.7; CHCM 30.3; Eosinophils # (A) 0.2 k/uL (0-0.7); Eosinophils % (A) 2 %; HCT 32.7 % (34.0-46.0); HDW 3.13; HGB 10.4 gm/dL (11.4-16.0); Hypochromasia Marked; Luc # (Auto) 0.14; Luc % (Auto) 2; Lymphocytes # (A) 2.2 k/uL (1.0-4.8); Lymphocytes % (A) 23 %; MCHC 31.8 g/dL (31.0-37.0); MCV 78.6 fL (80.0-100.0); Monocytes # (A) 0.3 k/uL (0-1.0); Monocytes % (A) 3 %; Neutrophils # (A) 6.7 k/uL (1.3-7.7); Neutrophils % (A) 70 %; RBC 4.16 m/uL (3.80-5.40); RDW 15.7 % (11.5-15.5); WBC 9.5 k/uL (3.8-10.6)
[2016-12-18] MEDS: INSULIN LISPRO (humaLOG) 300 UNIT/3 ML VIAL SQ SCH ×4 (10:27→21:23)
[2016-12-18] MEDS: PANTOPRAZOLE 40 MG TABLET PO SCH (10:28)
[2016-12-18] MEDS: ACETAMINOPHEN IV (For NPO) 1,000 MG in EMPTY BAG 1 BAG IVPB SCH (10:29)
[2016-12-18] MEDS: LISINOPRIL 10 MG TAB PO SCH (10:30)
[2016-12-18] MEDS: ENOXAPARIN 40 MG/0.4 ML SYRINGE SQ SCH ×2 (10:30→21:16)
--- NOTE | 2016-12-18 10:34 | CONS ---
DATE OF CONSULTATION: 12/17/2016 REASON FOR CONSULTATION: Medical management requested by Dr. Blanca. CONSULTATION: This is a very pleasant 36-year-old patient of Dr. Ritter who I saw this morning. Patient has undergone a gastric bypass surgery. Postprocedure patient's upper gastrointestinal series came back to be okay. Some pain is present. No nausea, vomiting. The patient's chronic stable medical conditions include diabetes, GERD, hypertension, sleep apnea, hypothyroid, restless leg syndrome, ADHD and depression. These are all controlled. Sitting on bed, not in distress. REVIEW OF SYSTEMS: CONSTITUTIONAL: None. HEENT: None. RESPIRATORY: None. CARDIOVASCULAR: None. GASTROINTESTINAL: As above. GENITOURINARY: None. MUSCULOSKELETAL: None. Dermatological: None. HEMATOLOGICAL: None. LYMPHATIC: None. PSYCHIATRY: None. NEUROLOGICAL: Restless leg syndrome. PAST MEDICAL HISTORY: Diabetes, GERD, hypertension, sleep apnea, hypothyroid, ADHD, depression, restless leg syndrome. PAST SURGICAL HISTORY: . Cholecystectomy. Tubal ligation. PAST PSYCHIATRIC HISTORY: ADHD, depression. No smoking. No alcohol. FAMILY HISTORY: Kidney failure. HOME MEDICATIONS: 1. Ultram 50 mg p.o. q.h.s. 2. Trental 20 mg p.o. q.h.s. 3. Mirapex 0.125 mg p.o. q.h.s. 4. Pamelor 50 mg p.o. at bedtime. 5. Latuda 60 mg p.o. q.h.s. 6. Zestril 10 mg p.o. daily. 7. Synthroid 50 mcg p.o. daily and 350 micrograms p.o. daily. 8. Prevacid 30 mg p.o. daily. 9. Lantus 60 units subcu b.i.d. 10. Humalog 22 units subcutaneous with meals. 11. Vitamin D2, 50,000 units on Fridays. 12. ProAir 2 puffs q.i.d. p.r.n. ALLERGIES: None. On examination, temperature 98.1, pulse 113, respirations 16, blood pressure 123/72. pulse ox 96% on 2 liters. GENERAL APPEARANCE: Well built, BMI of 48.6, sitting up, not in distress. EYES: Pupils equal. Conjunctivae normal. HEENT: Oral cavity normal. NECK: JVD not raised. Mass not palpable. RESPIRATORY: Effort normal. LUNGS: Fair air entry. CARDIOVASCULAR: First and second sounds normal. No edema. ABDOMEN: Mild tenderness. Soft. Liver and spleen not palpable. LYMPHATIC: No lymph nodes palpable in neck or axillae. PSYCHIATRY: Alert and oriented x3. Mood and affect normal. NEUROLOGICAL: Pupils equal. Cranial nerves grossly intact. Power and sensation grossly intact. INVESTIGATIONS: White count 11.1, hemoglobin 11.1, potassium 4.7. Accu-Cheks are noted. ASSESSMENT: 1. Gastric bypass surgery for morbid obesity. 2. Morbid obesity, body mass index 48.6. 3. Diabetes mellitus, type II, chronically requiring insulin. 4. Gastroesophageal reflux disease. 5. Essential hypertension. 6. Obstructive sleep apnea, uses CPAP machine. 7. Hypothyroidism. 8. Attention deficit hyperactivity disorder and depression, controlled. 9. Restless leg syndrome. PLAN: Home medications are resumed. Will hold off the patient's scheduled sliding Humalog, will use sliding scale. Care was discussed with the patient. Questions were answered. Thank you, Dr. Blanca. Copy to Dr. Ritter.
[2016-12-18] MEDS: INSULIN GLARGINE 100 UNIT/ML 10 ML VIAL SQ SCH ×2 (10:40→21:16)
--- NOTE | 2016-12-18 10:47 | P.PN ---
Subjective Principal diagnosis: Status post Cinda-en-Y gastric bypass 36 years old female status post laparoscopic Cinda-en-Y gastric bypass and intraoperative EGD postop day #1. Patient complains of pain along the left incisions. No nausea or vomiting. No flatus. Upper GI showed no obstruction and no leak. Vital signs stable, afebrile. No acute events overnight Objective - Vital Signs Vital signs: Vital Signs Temp 96.4 F L 12/18/16 07:00 Pulse 106 H 12/18/16 09:03 Resp 17 12/18/16 07:00 BP 134/73 12/18/16 07:00 Pulse Ox 92 L 12/18/16 08:54 Intake & Output 12/17/16 12/18/16 12/18/16 18:59 06:59 18:59 Intake Total 240 1150 500 Output Total 900 600 Balance -660 550 500 Weight 144.968 kg 144.968 kg Intake: Intake, IV Titration 1150 Amount Lactated Ringers 1,000 ml 1150 @ 100 mls/hr IV .Q[facility]H [facility] Rx#:[id number] Oral 240 500 Output: Urine 900 600 Uretheral (Rg) 600 Other: Voiding Method Indwelling Catheter Indwelling Catheter # Voids 1 1 - Exam General: Patient is alert and oriented to time, place and person and cooperative with exam. HEENT: No pallor, no icterus Chest: Bilateral equal breath sounds present. No wheezes, no crackles. Cardiovascular: Regular rate and rhythm. Abdomen: Soft, nontender, nondistended. No surgical site infection Integumentary: No active ulcers or discharge. Neurologic: Cranial nerves II-XII intact. Strength upper and lower extremities 5/5. No focal neurologic deficits. Gait is normal. - Labs CBC & Chem 7: 12/18/16 08:47 12/18/16 06:55 Labs: Abnormal Lab Results - Last 24 Hours (Table) 12/17/16 12/17/16 12/17/16 Range/Units 07:04 12:40 17:00 Hgb (11.4-16.0) gm/dL Hct (34.0-46.0) % MCV (80.0-100.0) fL RDW (11.5-15.5) % BUN (7-17) mg/dL Creatinine (0.52-1.04) mg/dL Glucose (74-99) mg/dL POC Glucose (mg/dL) 194 H 205 H (75-99) mg/dL Hemoglobin A1c 7.5 H (4.2-6.1) % Calcium (8.4-10.2) mg/dL Total Bilirubin (0.2-1.3) mg/dL AST (14-36) U/L ALT (9-52) U/L Total Protein (6.3-8.2) g/dL Albumin (3.5-5.0) g/dL 12/17/16 12/18/16 12/18/16 Range/Units 21:20 06:55 07:02 Hgb (11.4-16.0) gm/dL Hct (34.0-46.0) % MCV (80.0-100.0) fL RDW (11.5-15.5) % BUN 5 L (7-17) mg/dL Creatinine 0.47 L (0.52-1.04) mg/dL Glucose 176 H (74-99) mg/dL POC Glucose (mg/dL) 191 H 179 H (75-99) mg/dL Hemoglobin A1c (4.2-6.1) % Calcium 7.7 L (8.4-10.2) mg/dL Total Bilirubin 2.2 H (0.2-1.3) mg/dL AST 304 H (14-36) U/L ALT 206 H (9-52) U/L Total Protein 5.9 L (6.3-8.2) g/dL Albumin 2.9 L (3.5-5.0) g/dL 12/18/16 Range/Units 08:47 Hgb 10.4 L (11.4-16.0) gm/dL Hct 32.7 L (34.0-46.0) % MCV 78.6 L (80.0-100.0) fL RDW 15.7 H (11.5-15.5) % BUN (7-17) mg/dL Creatinine (0.52-1.04) mg/dL Glucose (74-99) mg/dL POC Glucose (mg/dL) (75-99) mg/dL Hemoglobin A1c (4.2-6.1) % Calcium (8.4-10.2) mg/dL Total Bilirubin (0.2-1.3) mg/dL AST (14-36) U/L ALT (9-52) U/L Total Protein (6.3-8.2) g/dL Albumin (3.5-5.0) g/dL Assessment and Plan (1) Hypertension Status: Acute (2) Migraine Status: Acute (3) Morbid obesity Status: Acute (4) Type 2 diabetes mellitus Status: Acute (5) Hypothyroidism Status: Chronic (6) Morbid obesity with body mass index of 50 or higher Status: Chronic Plan: 1. Status post Cinda-en-Y gastric bypass postop day #1 2. Upper GI showed no obstruction or leak 3. Start bariatric clear liquid diet 4. Increase IV fluids 200 mL and hours. 5. Magnesium replacement 6. Incentive spirometry use 7. DVT and GI prophylaxis
--- NOTE | 2016-12-18 10:48 | P.PN ---
Subjective Principal diagnosis: Status post Cinda-en-Y gastric bypass 36 years old female status post laparoscopic Cinda-en-Y gastric bypass and intraoperative EGD postop day #2. Patient complains of pain along the left incisions. No nausea or vomiting. Had bowel movements after Dulcolax suppository. Passing flatus. Tolerating bariatric clear liquid diet Upper GI showed no obstruction and no leak. Vital signs stable, afebrile. No acute events overnight Objective - Vital Signs Vital signs: Vital Signs Temp 96.4 F L 12/18/16 07:00 Pulse 106 H 12/18/16 09:03 Resp 17 12/18/16 07:00 BP 134/73 12/18/16 07:00 Pulse Ox 92 L 12/18/16 08:54 Intake & Output 12/17/16 12/18/16 12/18/16 18:59 06:59 18:59 Intake Total 240 1150 500 Output Total 900 600 Balance -660 550 500 Weight 144.968 kg 144.968 kg Intake: Intake, IV Titration 1150 Amount Lactated Ringers 1,000 ml 1150 @ 100 mls/hr IV .Q10H [facility] Rx#:[id number] Oral 240 500 Output: Urine 900 600 Uretheral (Rg) 600 Other: Voiding Method Indwelling Catheter Indwelling Catheter # Voids 1 1 - Exam General: Patient is alert and oriented to time, place and person and cooperative with exam. HEENT: No pallor, no icterus Chest: Bilateral equal breath sounds present. No wheezes, no crackles. Cardiovascular: Regular rate and rhythm. Abdomen: Soft, nontender, nondistended. No surgical site infection Integumentary: No active ulcers or discharge. Neurologic: Cranial nerves II-XII intact. Strength upper and lower extremities 5/5. No focal neurologic deficits. Gait is normal. - Labs CBC & Chem 7: 12/18/16 08:47 12/18/16 06:55 Labs: Abnormal Lab Results - Last 24 Hours (Table) 12/17/16 12/17/16 12/17/16 Range/Units 07:04 12:40 17:00 Hgb (11.4-16.0) gm/dL Hct (34.0-46.0) % MCV (80.0-100.0) fL RDW (11.5-15.5) % BUN (7-17) mg/dL Creatinine (0.52-1.04) mg/dL Glucose (74-99) mg/dL POC Glucose (mg/dL) 194 H 205 H (75-99) mg/dL Hemoglobin A1c 7.5 H (4.2-6.1) % Calcium (8.4-10.2) mg/dL Total Bilirubin (0.2-1.3) mg/dL AST (14-36) U/L ALT (9-52) U/L Total Protein (6.3-8.2) g/dL Albumin (3.5-5.0) g/dL 12/17/16 12/18/16 12/18/16 Range/Units 21:20 06:55 07:02 Hgb (11.4-16.0) gm/dL Hct (34.0-46.0) % MCV (80.0-100.0) fL RDW (11.5-15.5) % BUN 5 L (7-17) mg/dL Creatinine 0.47 L (0.52-1.04) mg/dL Glucose 176 H (74-99) mg/dL POC Glucose (mg/dL) 191 H 179 H (75-99) mg/dL Hemoglobin A1c (4.2-6.1) % Calcium 7.7 L (8.4-10.2) mg/dL Total Bilirubin 2.2 H (0.2-1.3) mg/dL AST 304 H (14-36) U/L ALT 206 H (9-52) U/L Total Protein 5.9 L (6.3-8.2) g/dL Albumin 2.9 L (3.5-5.0) g/dL 12/18/16 Range/Units 08:47 Hgb 10.4 L (11.4-16.0) gm/dL Hct 32.7 L (34.0-46.0) % MCV 78.6 L (80.0-100.0) fL RDW 15.7 H (11.5-15.5) % BUN (7-17) mg/dL Creatinine (0.52-1.04) mg/dL Glucose (74-99) mg/dL POC Glucose (mg/dL) (75-99) mg/dL Hemoglobin A1c (4.2-6.1) % Calcium (8.4-10.2) mg/dL Total Bilirubin (0.2-1.3) mg/dL AST (14-36) U/L ALT (9-52) U/L Total Protein (6.3-8.2) g/dL Albumin (3.5-5.0) g/dL Assessment and Plan (1) Hypertension Status: Acute (2) Migraine Status: Acute (3) Morbid obesity Status: Acute (4) Type 2 diabetes mellitus Status: Acute (5) Hypothyroidism Status: Chronic (6) Morbid obesity with body mass index of 50 or higher Status: Chronic Plan: 1. Status post Cinda-en-Y gastric bypass postop day #2 2. Upper GI showed no obstruction or leak 3. Start bariatric clear liquid diet. Advance diet as per protocol 4. Heplock IV 5. Oral pain meds 6. Incentive spirometry use 7. DVT and GI prophylaxis 8. Discharge home in 24 hrs
[2016-12-18] MEDS: HYDROcodone/APAP 5-325MG 1 EACH TAB PO PRN ×3 (11:19→20:25)
[2016-12-18 11:39] LABS: Glucose,Whole Blood 170 mg/dL (75-99)
[2016-12-18 16:57] LABS: Glucose,Whole Blood 140 mg/dL (75-99)
[2016-12-18 20:45] LABS: Glucose,Whole Blood 132 mg/dL (75-99)
--- NOTE | 2016-12-18 21:14 | PN ---
DATE OF SERVICE: 12/18/2016 Presenting complaint: Gastric bypass surgery. INTERVAL HISTORY: Patient is status post gastric bypass surgery. Did tolerate some liquids. Pain is better. No nausea or vomiting. Has been out of bed. Review of systems done for constitutional, cardiovascular, GI, pulmonary; relevant findings as above. Current medications are reviewed. On examination, temperature 98.2, pulse 104, respiratory rate 17, blood pressure 109/60, pulse ox 99% on room air. Current medications include Lantus 40 units subcu b.i.d. On examination, temperature 96.4, pulse 110, respirations 17, blood pressure 100/73, pulse ox 98% on 3 L. GENERAL APPEARANCE: Lying in bed, comfortable. EYES: Pupils equal. Conjunctivae normal. NECK: JVD not raised. Mass not palpable. RESPIRATORY: Effort normal. LUNGS: Clear. CARDIOVASCULAR: First and second sounds normal. No edema. ABDOMEN: Soft, mild tenderness. Bowel sounds are present. PSYCHIATRY: Alert and oriented x3. Mood and affect normal. INVESTIGATIONS: Accu-Cheks 179, 170, 140. ASSESSMENT: 1. Gastric bypass surgery for morbid obesity. 2. Morbid obesity, body mass index 48.6. 3. Type 2 diabetes mellitus, chronically requiring insulin. 4. Gastroesophageal reflux disease. 5. Essential hypertension. 6. Obstructive sleep apnea, uses CPAP machine. 7. Hypothyroidism. 8. Attention deficit hyperactivity disorder and depression, controlled. 9. Restless leg syndrome. PLAN: Care was discussed with the patient. Diabetes was discussed. Expect sugars to come as she loses weight. Patient is taking Lantus 60 units b.i.d. at home. Given her sugars currently will change Lantus to 44 units subcu b.i.d. Continue sliding scale.
[2016-12-18] MEDS: LURASIDONE 40 MG TAB PO SCH (21:18)
[2016-12-18] MEDS: PRAMIPEXOLE 0.125 MG TAB PO SCH (21:19)
[2016-12-18 22:54] VITALS: RESP 16
[2016-12-19] MEDS: HYDROcodone/APAP 5-325MG 1 EACH TAB PO PRN ×3 (01:54→13:16)
[2016-12-19] MEDS: LEVOTHYROXINE 100 MCG TAB PO SCH (05:12)
[2016-12-19 06:58] LABS: Glucose,Whole Blood 117 mg/dL (75-99)
[2016-12-19] MEDS: INSULIN LISPRO (humaLOG) 300 UNIT/3 ML VIAL SQ SCH ×2 (07:15→11:38)
[2016-12-19] MEDS: ALBUTEROL NEBULIZED 2.5 MG/3 ML INHALATION SCH ×4 (07:30→19:28)
[2016-12-19 07:38] LABS: Basophils # (A) 0.1 k/uL (0-0.2); Basophils % (A) 1 %; CH 24.1; Eosinophils # (A) 0.2 k/uL (0-0.7); Eosinophils % (A) 4 %; HCT 30.4 % (34.0-46.0); HDW 3.06; HGB 9.6 gm/dL (11.4-16.0); Hypochromasia Moderate; Luc # (Auto) 0.17; Luc % (Auto) 3; Lymphocytes % (A) 33 %; MCH 24.6 pg (25.0-35.0); MCHC 31.6 g/dL (31.0-37.0); MCV 78.1 fL (80.0-100.0); Mean Platelet Volume 8.2; Microcytosis Slight; Monocytes # (A) 0.2 k/uL (0-1.0); Monocytes % (A) 3 %; Neutrophils # (A) 3.4 k/uL (1.3-7.7); Neutrophils % (A) 56 %; RBC 3.89 m/uL (3.80-5.40); RDW 15.9 % (11.5-15.5); WBC (Perox) 6.72
[2016-12-19 07:57] LABS: ALT 140 U/L (9-52); AST 134 U/L (14-36); Alkaline Phosphatase 87 U/L (38-126); Anion Gap 9 mmol/L; Blood Urea Nitrogen 5 mg/dL (7-17); Calcium 8.1 mg/dL (8.4-10.2); Carbon Dioxide 27 mmol/L (22-30); Chloride 103 mmol/L (98-107); Glucose 114 mg/dL (74-99); Magnesium 1.8 mg/dL (1.6-2.3); Non-African American GFR(MDRD) >60 (>60 ml/min/1.73 sqM); Sodium 139 mmol/L (137-145); Total Bilirubin 1.8 mg/dL (0.2-1.3); Total Protein 5.8 g/dL (6.3-8.2)
[2016-12-19 08:33] VITALS: BP 110/60; PULSE 97; TEMP 98.3
[2016-12-19] MEDS: ENOXAPARIN 40 MG/0.4 ML SYRINGE SQ SCH (08:34)
[2016-12-19] MEDS: PANTOPRAZOLE 40 MG TABLET PO SCH (08:34)
[2016-12-19] MEDS: LISINOPRIL 10 MG TAB PO SCH (08:35)
[2016-12-19] MEDS: INSULIN GLARGINE 100 UNIT/ML 10 ML VIAL SQ SCH (10:00)
[2016-12-19] MEDS ORDERED: SODIUM CHLORIDE 0.9% 1,000 ML IV ONE (11:20)
--- NOTE | 2016-12-19 11:35 | P.DS ---
Providers Date of admission: 12/16/16 11:48 Expected date of discharge: 12/19/16 Attending physician: Celsa Blanca Consults: 12/16/16 19:16 Consult Physician Urgent Consulting Provider: Dawit Fitzgerald Consult Reason/Comments: medical management Do you want consulting provider notified?: Yes Primary care physician: Stated None - Discharge Diagnosis(es) (1) Hypertension Current Visit: No Status: Acute (2) Migraine Current Visit: No Status: Acute (3) Morbid obesity Current Visit: No Status: Acute (4) Type 2 diabetes mellitus Current Visit: No Status: Acute (5) Hypothyroidism Current Visit: No Status: Chronic (6) Morbid obesity with body mass index of 50 or higher Current Visit: No Status: Chronic Hospital Course: 36 years old female status post laparoscopic Cinda-en-Y gastric bypass and intraoperative EGD. Patient had uneventful postoperative period. Pain is well controlled with oral pain medications. She is passing flatus and tolerating clear liquid diet. Patient is ambulating in hallways without assistance. Vital signs stable and afebrile during discharge Pertinent Studies: Upper GI study did not show any leak or obstruction Procedures: Laparoscopic Cinda-en-Y gastric bypass and intraoperative EGD Patient Condition at Discharge: Good Plan - Discharge Summary New Discharge Prescriptions: Docusate [Colace] 100 mg PO BID #30 capsule HYDROcodone/APAP 7.5-325MG [[place] 7.5-325] 1 each PO Q4H PRN #30 tab PRN Reason: Pain Discharge Medication List Pramipexole [Mirapex] 0.125 mg PO HS 10/10/14 [History] Ergocalciferol [Vitamin D2 (DRISDOL)] 50,000 unit PO FR 01/22/15 [History] Albuterol Sulfate [Proair Hfa] 1 - 2 puff INHALATION RT-QID PRN 07/22/16 [ History] INSULIN LISPRO (HumaLOG) [HumaLOG] 22 units SQ TID-W/MEALS 07/22/16 [History] Insulin Glargine [Lantus] 60 unit SQ BID 07/22/16 [History] Lansoprazole [Prevacid] 30 mg PO DAILY 07/22/16 [History] Lisinopril [Zestril] 10 mg PO DAILY 07/22/16 [History] Vortioxetine Hydrobromide [Trintellix] 20 mg PO HS 07/22/16 [History] traMADol HCL [Ultram] 50 mg PO HS 07/22/16 [History] Lurasidone HCl [Latuda] 60 mg PO HS 11/03/16 [History] Nortriptyline [Pamelor] 50 mg PO HS 11/03/16 [History] Levothyroxine Sodium [Synthroid] 50 mcg PO DAILY 12/08/16 [History] Levothyroxine Sodium [Synthroid] 350 mcg PO DAILY 12/08/16 [History] Docusate [Colace] 100 mg PO BID #30 capsule 12/18/16 [Rx] HYDROcodone/APAP 7.5-325MG [[place] 7.5-325] 1 each PO Q4H PRN #30 tab 12/18/16 [ Rx] Follow up Appointment(s)/Referral(s): Celsa Blanca MD [STAFF PHYSICIAN] - 12/22/16 ([facility] ) Anshu Ritter DO [STAFF PHYSICIAN] - 1 Week Patient Instructions/Handouts: *Surgery [facility] - Scopalamine Patch Instructions Activity/Diet/Wound Care/Special Instructions: OK to shower . No soaking bath. No heavy lifting more than 10 lbs for 6 weeks post surgery. No driving while taking narcotics for pain. May use ice packs for local pain relief Use incentive spireometry 10 times an hour while awake . Diet as per postoperative bariatric diet protocol. Take clear liquids only of nausea and vomiting occurs. Monitor blood sugar levels and adjust insulin doses accordingly Discharge Disposition: HOME SELF-CARE
[2016-12-19 11:45] LABS: Glucose,Whole Blood 115 mg/dL (75-99)
[2016-12-19] MEDS ORDERED: SCOPOLAMINE 1.5MG/72HR PATCH TRANSDERM SCH (12:00)
--- NOTE | 2016-12-20 09:51 | PN ---
DATE OF SERVICE: 12/19/2016 PRESENTING COMPLAINT: Gastric bypass surgery. INTERVAL HISTORY: This patient was seen by me earlier today, status post surgery, doing well. Oral intake of liquids low; hence Dr. Blanca ordered some IV fluids. Pain is controlled. No nausea or vomiting. Has been out of bed. Review of systems done for constitutional risk of GI, pulmonary; relevant findings as above. Current medications are reviewed and include Lantus 44 units twice a day. On examination, temperature 98.3, pulse ox 97, respirations 16, blood pressure 110/60, pulse ox 95% on room air. GENERAL APPEARANCE: Lying in bed, comfortable. EYES: Pupils equal. Three JVD not raised. Mass not palpable. RESPIRATORY: Effort normal. Lungs are clear. CARDIOVASCULAR: First and second sounds normal. No edema. ABDOMEN: Soft, mild tenderness. Bowel sounds present. PSYCHIATRY: Alert and oriented x3. Mood and affect normal. INVESTIGATIONS: White count 6, hemoglobin 9.6, potassium 4.0. ASSESSMENT: 1. Gastric bypass surgery for morbid obesity. 2. Morbid obesity; body mass index 48.6. 3. Diabetes mellitus type 2, chronically requiring insulin. 4. Gastroesophageal reflux disease. 5. Hypertension. 6. Obstructive sleep apnea, uses CPAP. 7. Hypothyroidism. 8. Attention deficit hyperactivity disorder and depression, controlled. 9. Restless leg syndrome. PLAN: Care was discussed with the patient. The patient will go home on Lantus 45 minutes b.i.d. and with meals she will take anywhere from 2 to 4 units, depending on what her sugar is. Discussed this in detail. She is to keep a log of the same and follow up with the family doctor upon discharge. Thank you, Dr. Blanca.
== END 2016-12-19 14:36 | disposition home or self-care (01) | DRG 621 ==
LOC: 2ORWHC 11:48 → 3SUR 19:02
PROVIDERS: ADMIT Surgery; ATTEND Surgery
PROC: 0D164ZA Bypass Stomach to Jejunum, Percutaneous Endoscopic Approach (ICD-10-PCS; principal; 2016-12-16 13:00)
PROC: 0DJ08ZZ Inspection of Upper Intestinal Tract, Via Natural or Artificial Opening Endoscopic (ICD-10-PCS; principal; 2016-12-16 13:00)
DX: E66.01 Morbid (severe) obesity due to excess calories (principal); I10 Essential (primary) hypertension; F32.9 Major depressive disorder, single episode, unspecified; E03.9 Hypothyroidism, unspecified; Z68.43 Body mass index [BMI] 50.0-59.9, adult; E11.9 Type 2 diabetes mellitus without complications; F90.9 Attention-deficit hyperactivity disorder, unspecified type; G25.81 Restless legs syndrome; G43.909 Migraine, unspecified, not intractable, without status migrainosus; G47.33 Obstructive sleep apnea (adult) (pediatric); K21.9 Gastro-esophageal reflux disease without esophagitis; Z79.4 Long term (current) use of insulin; Z79.899 Other long term (current) drug therapy
CPT/HCPCS: 74240; 80051; 80053; 81025; 82310; 82565; 83036; 83735; 84100; 84520; 85025; 94640; 94660; 94760

== ENCOUNTER → 2016-12-22 | Outpatient (CLI) | payer OTHER ==
[2016-12-22 10:07] VITALS: BP 126/84; PULSE 97; RESP 16; TEMP 97.8; BMI 49.7
[2016-12-22 11:17] LABS: CH 23.8; CHCM 31.1; HCT 34.2 % (34.0-46.0); HDW 3.34; HGB 10.7 gm/dL (11.4-16.0); Hypochromasia Moderate; MCHC 31.2 g/dL (31.0-37.0); MCV 76.9 fL (80.0-100.0); Microcytosis Slight; RBC 4.45 m/uL (3.80-5.40); RDW 15.6 % (11.5-15.5); WBC 8.1 k/uL (3.8-10.6)
[2016-12-22 11:36] LABS: ALT 62 U/L (9-52); AST 41 U/L (14-36); Alkaline Phosphatase 119 U/L (38-126); Anion Gap 16 mmol/L; Blood Urea Nitrogen 10 mg/dL (7-17); Carbon Dioxide 23 mmol/L (22-30); Chloride 99 mmol/L (98-107); Glucose 139 mg/dL (74-99); Magnesium 1.5 mg/dL (1.6-2.3); Non-African American GFR(MDRD) >60 (>60 ml/min/1.73 sqM); Phosphorous 4.4 mg/dL (2.5-4.5); Potassium 4.2 mmol/L (3.5-5.1); Sodium 138 mmol/L (137-145); Total Protein 6.9 g/dL (6.3-8.2)
--- NOTE | 2017-01-12 17:07 | P.PN ---
Subjective 36 years old female with morbid obesity initial BMI 55.4, height 5 feet 7.5inches, weight 162.92 kgs (359.3 pounds) S/P laparoscopic Cinda-en-Y gastric bypass on 12/22/2016. She has attempted nonsurgical weight loss with special diets and exercise regimen. Her comorbid conditions include obstructive sleep apnea on CPAP, hypothyroidism , fatty liver disease , migraine , Type 2 DM ,hypertensionand depression. She works at [employer]. Minimal incisional pain. No nausea or vomiting. No change in bowel habits. Pain is well controlled . Initially evaluated in 2013 at the bariatric center. Her goal weight is between 182 -200 pounds Preoperative visit #1, 09/25/2014, weight 162.92 kgs, BMI 55.4 Preoperative visit # 2, 01/22/2015 , weight 162.64 kgs, BMI 55.3 Preoperative visit # 3, 11/03/2016 , .72 kgs, BMI 52.3 Preoperative visit # 4, 11/24/2016 , .26 kgs, BMI 52.1 Surgery: 12/16/2016- LapRYGB Postoperative visit#1 12/22/16, weight 146.25 kgs BMI 49 Review of Systems Constitutional: Denies fever, weight loss or loss of appetite HEENT: No difficulty in vision or hearing. Denies dysphagia. Cardiovascular: Denies chest pain, palpitations, dizziness, shortness of breath. Respiratory: No history of asthma . She has sleep apnea on CPAP Gastrointestinal: No recent change in bowel habits, no abdominal pain, no nausea or vomiting. She has intermittent reflux symptoms and undergone laparoscopic cholecystectomy Integumentary: Long-standing skin changes with intermittent skin breakdown in bilateral lower extremities. Genitourinary: No urinary incontinence, hematuria or dysuria Neurologic: No seizures, denies weakness in upper or lower extremities. History of migraines Musculoskeletal: No back pain or joint pain Psychiatry: Known history of depression, no suicidal ideation, no anxiety or psychosis Past Medical History Past Medical History: GERD/Reflux, Sleep Apnea/CPAP/BIPAP, Thyroid Disorder Additional Past Medical History / Comment(s): migraines, HSV History of Any Multi-Drug Resistant Organisms: None Reported Past Surgical History: Section, Cholecystectomy, Tubal Ligation Past Anesthesia/Blood Transfusion Reactions: Motion Sickness, Postoperative Nausea & Vomiting (PONV) Additional Past Anesthesia/Blood Transfusion Reaction / Comment(s): STATES NAUSEA WITH PAIN MEDS Past Psychological History: Depression Smoking Status: Never smoker Past Alcohol Use History: None Reported Past Drug Use History: None Reported - Past Family History Father Family Medical History: No Reported History Additional Family Medical History / Comment(s): of kidney failure Medications and Allergies Home Medications Medication Instructions Recorded Confirmed Type Pramipexole [Mirapex] 0.125 mg PO HS 10/10/14 11/03/16 History Ergocalciferol [Vitamin D2 50,000 unit PO QMONTH 01/22/15 11/03/16 History (DRISDOL)] Albuterol Sulfate [Proair Hfa] 1 - 2 puff INHALATION RT-Q6H PRN 07/22/16 History INSULIN LISPRO (HumaLOG) [HumaLOG] 20 units SQ TID-W/MEALS 07/22/16 11/03/16 History Insulin Glargine [Lantus] 120 unit SQ HS 07/22/16 11/03/16 History Lansoprazole [Prevacid] 30 mg PO DAILY 07/22/16 11/03/16 History Levothyroxine Sodium [Synthroid] 400 mcg PO DAILY 07/22/16 11/03/16 History Lisinopril [Zestril] 10 mg PO DAILY 07/22/16 11/03/16 History Vortioxetine Hydrobromide 20 mg PO DAILY 07/22/16 11/03/16 History [Trintellix] traMADol HCL [Ultram] 50 mg PO BID 07/22/16 11/03/16 History Lurasidone HCl [Latuda] 60 mg PO DAILY 11/03/16 11/03/16 History Nortriptyline [Pamelor] 50 mg PO DAILY 11/03/16 11/03/16 History Allergies Allergy/AdvReac Type Severity Reaction Status Date / Time No Known Allergies Allergy Verified 11/03/16 08:52 Past Medical History Past Medical History: Diabetes Mellitus, GERD/Reflux, Sleep Apnea/CPAP/BIPAP, Thyroid Disorder Additional Past Medical History / Comment(s): migraines, HSV History of Any Multi-Drug Resistant Organisms: None Reported Past Surgical History: Section, Cholecystectomy, Tubal Ligation Past Anesthesia/Blood Transfusion Reactions: Motion Sickness, Postoperative Nausea & Vomiting (PONV) Additional Past Anesthesia/Blood Transfusion Reaction / Comment(s): STATES NAUSEA WITH PAIN MEDS Past Psychological History: Depression Smoking Status: Never smoker Past Alcohol Use History: None Reported Past Drug Use History: None Reported - Past Family History Father Family Medical History: No Reported History Additional Family Medical History / Comment(s): of kidney failure Medications and Allergies Home Medications Medication Instructions Recorded Confirmed Type Pramipexole [Mirapex] 0.125 mg PO HS 10/10/14 11/24/16 History Ergocalciferol [Vitamin D2 50,000 unit PO QMONTH 01/22/15 11/24/16 History (DRISDOL)] Albuterol Sulfate [Proair Hfa] 1 - 2 puff INHALATION RT-Q6H PRN 07/22/16 History INSULIN LISPRO (HumaLOG) [HumaLOG] 20 units SQ TID-W/MEALS 07/22/16 11/24/16 History Insulin Glargine [Lantus] 120 unit SQ HS 07/22/16 11/24/16 History Lansoprazole [Prevacid] 30 mg PO DAILY 07/22/16 11/24/16 History Levothyroxine Sodium [Synthroid] 400 mcg PO DAILY 07/22/16 11/24/16 History Lisinopril [Zestril] 10 mg PO DAILY 07/22/16 11/24/16 History Vortioxetine Hydrobromide 20 mg PO DAILY 07/22/16 11/24/16 History [Trintellix] traMADol HCL [Ultram] 50 mg PO BID 07/22/16 11/24/16 History Lurasidone HCl [Latuda] 60 mg PO DAILY 11/03/16 11/24/16 History Nortriptyline [Pamelor] 50 mg PO DAILY 11/03/16 11/24/16 History Allergies Allergy/AdvReac Type Severity Reaction Status Date / Time No Known Allergies Allergy Verified 11/24/16 08:55 Objective - Vital Signs Vital signs: Vital Signs Temp 97.8 F 12/22/16 10:02 Pulse 97 12/22/16 10:02 Resp 16 12/22/16 10:02 BP 126/84 12/22/16 10:02 Pulse Ox Intake & Output 12/21/16 12/22/16 12/22/16 18:59 06:59 18:59 Weight 146.255 kg - Exam General: Patient is alert and oriented to time, place and person and cooperative with exam. She is not in acute distress. HEENT: No pallor, no icterus, no thyroid enlargement, no cervical lymphadenopathy. Chest: Bilateral equal breath sounds present. No wheezes, no crackles. Cardiovascular: Regular rate and rhythm. Abdomen: Soft, nontender, nondistended. Well-healed surgical scars from lap gabby and Csection. No surgical site infection Integumentary: No active ulcers or discharge. Neurologic: Cranial nerves II-XII intact. Strength upper and lower extremities 5/5. No focal neurologic deficits. Gait is normal. Psychiatric: No anxiety or psychosis. No suicidal thoughts. Social history: She has 2 living children and has good social support system - Labs CBC & Chem 7: 12/22/16 10:55 12/22/16 10:55 Assessment and Plan (1) Depression Status: Acute (2) H. pylori infection Status: Acute (3) Hypertension Status: Acute (4) Migraine Status: Acute (5) Morbid obesity Status: Acute (6) Sleep apnea Status: Acute (7) Type 2 diabetes mellitus Status: Acute (8) Hypothyroidism Status: Chronic Plan: 1. S/P lap RYGB 2. Advance diet as per protocol 3. Monitor blood sugar and titer medications accordingly 4. Hypothyroidism management as per endocrinology 5. Increase activity as tolerated. No heavy lifting>10lbs for 6 weeks post surgery
== END | disposition home or self-care (01) ==
LOC: BARWHC3 09:56
PROVIDERS: ATTEND Surgery
DX: Z48.815 Encounter for surgical aftercare following surgery on the digestive system (principal); E66.01 Morbid (severe) obesity due to excess calories; Z68.42 Body mass index [BMI] 45.0-49.9, adult; Z71.3 Dietary counseling and surveillance; E44.1 Mild protein-calorie malnutrition; Z79.899 Other long term (current) drug therapy; Z79.4 Long term (current) use of insulin; E11.9 Type 2 diabetes mellitus without complications; F32.9 Major depressive disorder, single episode, unspecified; B96.81 Helicobacter pylori [H. pylori] as the cause of diseases classified elsewhere; I10 Essential (primary) hypertension; G43.909 Migraine, unspecified, not intractable, without status migrainosus; G47.30 Sleep apnea, unspecified; E03.9 Hypothyroidism, unspecified; Z99.89 Dependence on other enabling machines and devices; K21.9 Gastro-esophageal reflux disease without esophagitis
CPT/HCPCS: 80053; 83735; 84100; 84443; 85027; 97803; 36415; G0463; 99211

== ENCOUNTER → 2017-01-12 | Outpatient (CLI) | payer OTHER ==
[2017-01-12 11:41] VITALS: BP 107/77; PULSE 90; RESP 16; TEMP 98; BMI 46.0
--- NOTE | 2017-01-12 17:03 | P.PN ---
Subjective Principal diagnosis: S/P LAP RYGB on 01/12/2017 36 years old female with morbid obesity initial BMI 55.4, height 5 feet 7.5inches, weight 162.92 kgs (359.3 pounds) S/P laparoscopic Cinda-en-Y gastric bypass on 12/22/2016. Her comorbid conditions include obstructive sleep apnea on CPAP, hypothyroidism , fatty liver disease , migraine , Type 2 DM , hypertensionand depression. She works at [employer]. She is walking 10-15 min a day. No nausea . vomiting. No RUQ pain. Initially evaluated in 2013 at the [facility]ariat[facility] center. Her goal weight is between 182 -200 pounds Preoperative visit #1, 09/25/2014, weight 162.92 kgs, BMI 55.4 Preoperative visit # 2, 01/22/2015 , weight 162.64 kgs, BMI 55.3 Preoperative visit # 3, 11/03/2016 , [id number] kgs, BMI 52.3 Preoperative visit # 4, 11/24/2016 , .26 kgs, BMI 52.1 Surgery: 12/16/2016- LapRYGB Postoperative visit#1 12/22/16, weight BMI 49 Postoperative visit#2 01/12/17, weight 146. 25 KG BMI 49.8 Review of Systems Constitutional: Denies fever, weight loss or loss of appetite HEENT: No difficulty in vision or hearing. Denies dysphagia. Cardiovascular: Denies chest pain, palpitations, dizziness, shortness of breath. Respiratory: No history of asthma . She has sleep apnea on CPAP Gastrointestinal: No recent change in bowel habits, no abdominal pain, no nausea or vomiting. She has intermittent reflux symptoms and undergone laparoscopic cholecystectomy Integumentary: Long-standing skin changes with intermittent skin breakdown in bilateral lower extremities. Genitourinary: No urinary incontinence, hematuria or dysuria Neurologic: No seizures, denies weakness in upper or lower extremities. History of migraines Musculoskeletal: No back pain or joint pain Psychiatry: Known history of depression, no suicidal ideation, no anxiety or psychosis Past Medical History Past Medical History: GERD/Reflux, Sleep Apnea/CPAP/BIPAP, Thyroid Disorder Additional Past Medical History / Comment(s): migraines, HSV History of Any Multi-Drug Resistant Organisms: None Reported Past Surgical History: Section, Cholecystectomy, Tubal Ligation Past Anesthesia/Blood Transfusion Reactions: Motion Sickness, Postoperative Nausea & Vomiting (PONV) Additional Past Anesthesia/Blood Transfusion Reaction / Comment(s): STATES NAUSEA WITH PAIN MEDS Past Psychological History: Depression Smoking Status: Never smoker Past Alcohol Use History: None Reported Past Drug Use History: None Reported - Past Family History Father Family Medical History: No Reported History Additional Family Medical History / Comment(s): of kidney failure Medications and Allergies Home Medications Medication Instructions Recorded Confirmed Type Pramipexole [Mirapex] 0.125 mg PO HS 10/10/14 11/03/16 History Ergocalciferol [Vitamin D2 50,000 unit PO QMONTH 01/22/15 11/03/16 History (DRISDOL)] Albuterol Sulfate [Proair Hfa] 1 - 2 puff INHALATION RT-Q6H PRN 07/22/16 History INSULIN LISPRO (HumaLOG) [HumaLOG] 20 units SQ TID-W/MEALS 07/22/16 11/03/16 History Insulin Glargine [Lantus] 120 unit SQ HS 07/22/16 11/03/16 History Lansoprazole [Prevacid] 30 mg PO DAILY 07/22/16 11/03/16 History Levothyroxine Sodium [Synthroid] 400 mcg PO DAILY 07/22/16 11/03/16 History Lisinopril [Zestril] 10 mg PO DAILY 07/22/16 11/03/16 History Vortioxetine Hydrobromide 20 mg PO DAILY 07/22/16 11/03/16 History [Trintellix] traMADol HCL [Ultram] 50 mg PO BID 07/22/16 11/03/16 History Lurasidone HCl [Latuda] 60 mg PO DAILY 11/03/16 11/03/16 History Nortriptyline [Pamelor] 50 mg PO DAILY 11/03/16 11/03/16 History Allergies Allergy/AdvReac Type Severity Reaction Status Date / Time No Known Allergies Allergy Verified 11/03/16 08:52 Past Medical History Past Medical History: Diabetes Mellitus, GERD/Reflux, Sleep Apnea/CPAP/BIPAP, Thyroid Disorder Additional Past Medical History / Comment(s): migraines, HSV History of Any Multi-Drug Resistant Organisms: None Reported Past Surgical History: Section, Cholecystectomy, Tubal Ligation Past Anesthesia/Blood Transfusion Reactions: Motion Sickness, Postoperative Nausea & Vomiting (PONV) Additional Past Anesthesia/Blood Transfusion Reaction / Comment(s): STATES NAUSEA WITH PAIN MEDS Past Psychological History: Depression Smoking Status: Never smoker Past Alcohol Use History: None Reported Past Drug Use History: None Reported - Past Family History Father Family Medical History: No Reported History Additional Family Medical History / Comment(s): of kidney failure Medications and Allergies Home Medications Medication Instructions Recorded Confirmed Type Pramipexole [Mirapex] 0.125 mg PO HS 10/10/14 11/24/16 History Ergocalciferol [Vitamin D2 50,000 unit PO QMONTH 01/22/15 11/24/16 History (DRISDOL)] Albuterol Sulfate [Proair Hfa] 1 - 2 puff INHALATION RT-Q6H PRN 07/22/16 History INSULIN LISPRO (HumaLOG) [HumaLOG] 20 units SQ TID-W/MEALS 07/22/16 11/24/16 History Insulin Glargine [Lantus] 120 unit SQ HS 07/22/16 11/24/16 History Lansoprazole [Prevacid] 30 mg PO DAILY 07/22/16 11/24/16 History Levothyroxine Sodium [Synthroid] 400 mcg PO DAILY 07/22/16 11/24/16 History Lisinopril [Zestril] 10 mg PO DAILY 07/22/16 11/24/16 History Vortioxetine Hydrobromide 20 mg PO DAILY 07/22/16 11/24/16 History [Trintellix] traMADol HCL [Ultram] 50 mg PO BID 07/22/16 11/24/16 History Lurasidone HCl [Latuda] 60 mg PO DAILY 11/03/16 11/24/16 History Nortriptyline [Pamelor] 50 mg PO DAILY 11/03/16 11/24/16 History Allergies Allergy/AdvReac Type Severity Reaction Status Date / Time No Known Allergies Allergy Verified 11/24/16 08:55 Objective - Vital Signs Vital signs: Vital Signs Temp 98.0 F 01/12/17 11:37 Pulse 90 01/12/17 11:37 Resp 16 01/12/17 11:37 BP 107/77 01/12/17 11:37 Pulse Ox Intake & Output 01/11/17 01/12/17 01/12/17 18:59 06:59 18:59 Weight 135.426 kg - Exam General: Patient is alert and oriented to time, place and person and cooperative with exam. She is not in acute distress. HEENT: No pallor, no icterus, no thyroid enlargement, no cervical lymphadenopathy. Chest: Bilateral equal breath sounds present. No wheezes, no crackles. Cardiovascular: Regular rate and rhythm. Abdomen: Soft, nontender, nondistended. Well-healed surgical scars Integumentary: No active ulcers or discharge. Neurologic: Cranial nerves II-XII intact. Strength upper and lower extremities 5/5. No focal neurologic deficits. Gait is normal. Psychiatric: No anxiety or psychosis. No suicidal thoughts. Social history: She has 2 living children and has good social support system Assessment and Plan (1) Depression Status: Acute (2) Hypertension Status: Acute (3) Migraine Status: Acute (4) Morbid obesity Status: Acute (5) Sleep apnea Status: Acute (6) Type 2 diabetes mellitus Status: Acute (7) Hypothyroidism Status: Chronic Plan: 1. S/P lap RYGB 2. Advance diet as per protocol 3. Monitor blood sugar and titer medications accordingly 4. Hypothyroidism management as per endocrinology 5. Increase activity as tolerated. No heavy lifting>10lbs for 6 weeks post surgery 6. Check CBC, CMP, TSH and HbA1c in 2 weeks 7. Follow up 3 months post op
== END | disposition home or self-care (01) ==
LOC: BARWHC3 11:14
PROVIDERS: ATTEND Surgery
DX: E66.01 Morbid (severe) obesity due to excess calories (principal); F32.9 Major depressive disorder, single episode, unspecified; I10 Essential (primary) hypertension; G43.909 Migraine, unspecified, not intractable, without status migrainosus; G47.30 Sleep apnea, unspecified; E11.9 Type 2 diabetes mellitus without complications; E03.9 Hypothyroidism, unspecified; Z79.4 Long term (current) use of insulin; Z79.899 Other long term (current) drug therapy
CPT/HCPCS: 97803; G0463; 99211

== ENCOUNTER → 2017-04-11 | Outpatient (CLI) | payer OTHER ==
[2017-04-11 09:04] VITALS: BP 133/86; PULSE 75; RESP 16; TEMP 98.2; BMI 43.1
[2017-04-11 10:43] LABS: CH 23.8; CHCM 31.1; HCT 38.5 % (34.0-46.0); HDW 3.14; HGB 12.4 gm/dL (11.4-16.0); Hypochromasia Moderate; MCH 24.6 pg (25.0-35.0); MCHC 32.1 g/dL (31.0-37.0); MCV 76.6 fL (80.0-100.0); Microcytosis Slight; RBC 5.03 m/uL (3.80-5.40); RDW 14.6 % (11.5-15.5); WBC 8.2 k/uL (3.8-10.6)
[2017-04-11 12:07] LABS: ALT 25 U/L (9-52); AST 22 U/L (14-36); Alkaline Phosphatase 124 U/L (38-126); Anion Gap 12 mmol/L; Blood Urea Nitrogen 7 mg/dL (7-17); Calcium 9.4 mg/dL (8.4-10.2); Carbon Dioxide 25 mmol/L (22-30); Chloride 104 mmol/L (98-107); Cholesterol 203 mg/dL (<200); Glucose 122 mg/dL (74-99); HDL Cholesterol 45 mg/dL (40-60); Iron 39 ug/dL (37-170); Magnesium 1.9 mg/dL (1.6-2.3); Non-African American GFR(MDRD) >60 (>60 ml/min/1.73 sqM); Phosphorous 4.1 mg/dL (2.5-4.5); Potassium 4.3 mmol/L (3.5-5.1); Sodium 141 mmol/L (137-145); Total Bilirubin 1.7 mg/dL (0.2-1.3); Total Protein 7.4 g/dL (6.3-8.2); Triglycerides 171 mg/dL (<150)
[2017-04-11 12:20] LABS: % Iron Saturation 9.8 % (20-50); Prealbumin 14 mg/dL (18-36); Total Iron Binding Capacity 397 ug/dL (265-497)
[2017-04-11 13:22] LABS: Vitamin B12 291 pg/mL (239-931)
--- NOTE | 2017-04-11 15:27 | P.GSHP ---
History of Present Illness H&P Date: 04/11/17 Chief Complaint: Morbid Obesity BMI 43.1 S/P RYGB S/P LAP RYGB on 01/12/2017 37 years old female with morbid obesity initial BMI 55.4, height 5 feet 7.5inches, weight 162.92 kgs (359.3 pounds) S/P laparoscopic Cinda-en-Y gastric bypass on 12/22/2016. Her comorbid conditions include obstructive sleep apnea on CPAP- resolved , hypothyroidism , fatty liver disease , migraine , Type 2 DM - resolved,hypertension- resolved and depression. She works at [employer]. She is walking 10-15 min a day. No nausea . vomiting. No RUQ pain. She has been non compliant with thyroid medications - makes her nauseous Initially evaluated in 2013 at the bariatric center. Her goal weight is between 182 -200 pounds Preoperative visit #1, 09/25/2014, weight 162.92 kgs, BMI 55.4 Preoperative visit # 2, 01/22/2015 , weight 162.64 kgs, BMI 55.3 Preoperative visit # 3, 11/03/2016 , [id number] kgs, BMI 52.3 Preoperative visit # 4, 11/24/2016 , [id number] kgs, BMI 52.1 Surgery: 12/16/2016- Lap RYGB Postoperative visit#1 12/22/16, weight BMI 49 Postoperative visit#2 01/12/17, weight 146. 25 KG BMI 49.8 Postoperative visit#2 04/11/17, weight 126.722KG BMI 43.1 - Review of Systems Comment: Constitutional: Denies fever, weight loss or loss of appetite HEENT: No difficulty in vision or hearing. Denies dysphagia. Cardiovascular: Denies chest pain, palpitations, dizziness, shortness of breath. Respiratory: No history of asthma . She has sleep apnea on CPAP Gastrointestinal: No recent change in bowel habits, no abdominal pain, no nausea or vomiting. She has intermittent reflux symptoms and undergone laparoscopic cholecystectomy Integumentary: Long-standing skin changes with intermittent skin breakdown in bilateral lower extremities. Genitourinary: No urinary incontinence, hematuria or dysuria Neurologic: No seizures, denies weakness in upper or lower extremities. History of migraines Musculoskeletal: No back pain or joint pain Psychiatry: Known history of depression, no suicidal ideation, no anxiety or psychosis Past Medical History Past Medical History: Diabetes Mellitus, GERD/Reflux, Hypertension, Sleep Apnea/ CPAP/BIPAP, Thyroid Disorder Additional Past Medical History / Comment(s): MIGRAINES, RLS, USES C-PAP., STATES TREATED FOR H -PYLORI. , DDD ., PT STATES SOB WITH EXERTION. History of Any Multi-Drug Resistant Organisms: None Reported Past Surgical History: Section, Cholecystectomy, Tubal Ligation Past Anesthesia/Blood Transfusion Reactions: Motion Sickness, Postoperative Nausea & Vomiting (PONV) Additional Past Anesthesia/Blood Transfusion Reaction / Comment(s): . Past Psychological History: ADD/ADHD, Depression Smoking Status: Never smoker - Past Family History Father Family Medical History: No Reported History Additional Family Medical History / Comment(s): of kidney failure Medications and Allergies Home Medications Medication Instructions Recorded Confirmed Type Levothyroxine Sodium [Synthroid] 50 mcg PO DAILY 12/08/16 04/11/17 History Allergies Allergy/AdvReac Type Severity Reaction Status Date / Time No Known Allergies Allergy Verified 04/11/17 09:35 Surgical - Exam Vital Signs Temp Pulse Resp BP 98.2 F 75 16 133/86 04/11/17 09:00 04/11/17 09:00 04/11/17 09:00 04/11/17 09:00 General: Patient is alert and oriented to time, place and person and cooperative with exam. She is not in acute distress. HEENT: No pallor, no icterus, no thyroid enlargement, no cervical lymphadenopathy. Chest: Bilateral equal breath sounds present. No wheezes, no crackles. Cardiovascular: Regular rate and rhythm. Abdomen: Soft, nontender, nondistended. Well-healed surgical scars Integumentary: No active ulcers or discharge. Neurologic: Cranial nerves II-XII intact. Strength upper and lower extremities 5/5. No focal neurologic deficits. Gait is normal. Psychiatric: No anxiety or psychosis. No suicidal thoughts. Social history: She has 2 living children and has good social support system Results - Labs 04/11/17 10:23 04/11/17 10:23 Abnormal Lab Results - Last 24 Hours (Table) 04/11/17 04/11/17 04/11/17 Range/Units 10:23 10:23 10:23 MCV 76.6 L (80.0-100.0) fL MCH 24.6 L (25.0-35.0) pg Glucose 122 H (74-99) mg/dL % Saturation 9.8 L (20-50) % Total Bilirubin 1.7 H (0.2-1.3) mg/dL Prealbumin 14 L (18-36) mg/dL Triglycerides 171 H (<150) mg/dL Cholesterol 203 H (<200) mg/dL LDL Cholesterol, Calc 124 H (0-99) mg/dL Vitamin D 25-Hydroxy 22.3 L (30.0-100.0) ng/mL TSH 15.000 H (0.465-4.680) mIU/L Diabetes panel 04/11/17 Range/Units 10:23 Sodium 141 (137-145) mmol/L Potassium 4.3 (3.5-5.1) mmol/L Chloride 104 (98-107) mmol/L Carbon Dioxide 25 (22-30) mmol/L BUN 7 (7-17) mg/dL Creatinine 0.60 (0.52-1.04) mg/dL Glucose 122 H (74-99) mg/dL Calcium 9.4 (8.4-10.2) mg/dL AST 22 (14-36) U/L ALT 25 (9-52) U/L Alkaline Phosphatase 124 (38-126) U/L Total Protein 7.4 (6.3-8.2) g/dL Albumin 4.1 (3.5-5.0) g/dL Triglycerides 171 H (<150) mg/dL HDL Cholesterol 45 (40-60) mg/dL Thyroid panel 04/11/17 Range/Units 10:23 TSH 15.000 H (0.465-4.680) mIU/L Calcium panel 04/11/17 Range/Units 10:23 Calcium 9.4 (8.4-10.2) mg/dL Phosphorus 4.1 (2.5-4.5) mg/dL Albumin 4.1 (3.5-5.0) g/dL Pituitary panel 04/11/17 Range/Units 10:23 Sodium 141 (137-145) mmol/L Potassium 4.3 (3.5-5.1) mmol/L Chloride 104 (98-107) mmol/L Carbon Dioxide 25 (22-30) mmol/L BUN 7 (7-17) mg/dL Creatinine 0.60 (0.52-1.04) mg/dL Glucose 122 H (74-99) mg/dL Calcium 9.4 (8.4-10.2) mg/dL TSH 15.000 H (0.465-4.680) mIU/L Adrenal panel 04/11/17 Range/Units 10:23 Sodium 141 (137-145) mmol/L Potassium 4.3 (3.5-5.1) mmol/L Chloride 104 (98-107) mmol/L Carbon Dioxide 25 (22-30) mmol/L BUN 7 (7-17) mg/dL Creatinine 0.60 (0.52-1.04) mg/dL Glucose 122 H (74-99) mg/dL Calcium 9.4 (8.4-10.2) mg/dL Total Bilirubin 1.7 H (0.2-1.3) mg/dL AST 22 (14-36) U/L ALT 25 (9-52) U/L Alkaline Phosphatase 124 (38-126) U/L Total Protein 7.4 (6.3-8.2) g/dL Albumin 4.1 (3.5-5.0) g/dL Assessment and Plan (1) Depression Status: Acute (2) Morbid obesity Status: Acute (3) Hypothyroidism Status: Chronic (4) Vitamin D deficiency Status: Acute (5) Hypertriglyceridemia Status: Acute Plan: 1. S/P lap RYGB 2. Advance diet as per protocol 3. Monitor blood sugar and titer medications accordingly 4. Hypothyroidism - uncontrolled. TSH- 15. Endocrinology consult [facility] 5. Increase activity as tolerated. 6. Vitamin D supplementation 7. Follow up in 3 months 8. Maintain food and exercise diary
== END | disposition home or self-care (01) ==
LOC: BARWHC3 08:40
PROVIDERS: ATTEND Surgery
DX: E66.01 Morbid (severe) obesity due to excess calories (principal); F32.9 Major depressive disorder, single episode, unspecified; E03.9 Hypothyroidism, unspecified; E55.9 Vitamin D deficiency, unspecified; E78.1 Pure hyperglyceridemia; E07.9 Disorder of thyroid, unspecified; D50.8 Other iron deficiency anemias; T56.894A Toxic effect of other metals, undetermined, initial encounter; K90.9 Intestinal malabsorption, unspecified; Z68.41 Body mass index [BMI] 40.0-44.9, adult
CPT/HCPCS: 84255; 84134; 84425; 80061; 80053; 82607; 82728; 82525; 82746; 83540; 83550; 83735; 84100; 84443; 84590; 84630; 85027; 82306; 83970; 97803; G0463; 99211

== ENCOUNTER → 2018-01-04 | Outpatient (CLI) | payer OTHER ==
[2018-01-04 16:42] VITALS: BP 112/79; PULSE 81; RESP 16; TEMP 98.1; BMI 56.1
[2018-01-04 17:31] LABS: HCT 32.9 % (34.0-46.0); HGB 9.9 gm/dL (11.4-16.0); Hypochromasia Marked; MCHC 30.2 g/dL (31.0-37.0); MCV 69.7 fL (80.0-100.0); Mean Platelet Volume 7.9; Microcytosis Moderate; Platelet Count 301 k/uL (150-450); RBC 4.72 m/uL (3.80-5.40); RDW 14.7 % (11.5-15.5); WBC 8.1 k/uL (3.8-10.6)
[2018-01-04 17:39] LABS: Partial Thromboplastin Time 24.3 sec (22.0-30.0); Prothrombin Time 9.9 sec (9.0-12.0)
[2018-01-04 17:57] LABS: ALT 19 U/L (9-52); AST 16 U/L (14-36); Albumin 3.6 g/dL (3.5-5.0); Alkaline Phosphatase 105 U/L (38-126); Anion Gap 12 mmol/L; Blood Urea Nitrogen 12 mg/dL (7-17); Calcium 8.7 mg/dL (8.4-10.2); Carbon Dioxide 24 mmol/L (22-30); Chloride 103 mmol/L (98-107); Cholesterol 179 mg/dL (<200); Glucose 106 mg/dL (74-99); HDL Cholesterol 53 mg/dL (40-60); LDL Cholesterol,Calculated 102 mg/dL (0-99); Magnesium 1.8 mg/dL (1.6-2.3); Phosphorus 3.8 mg/dL (2.5-4.5); Potassium 4.4 mmol/L (3.5-5.1); Sodium 139 mmol/L (137-145); Total Bilirubin 1.1 mg/dL (0.2-1.3); Total Protein 6.8 g/dL (6.3-8.2); Triglycerides 121 mg/dL (<150)
[2018-01-05 00:40] LABS: Folate, Serum 9.7 ng/mL
[2018-01-05 00:54] LABS: Iron Saturation 3.03 (12.00-45.00); Vitamin D 25 Hydroxy 12.8 ng/mL (30.0-100.0)
[2018-01-05 03:03] LABS: Hemoglobin A1C 5.7 % (4.0-6.0)
[2018-01-05 03:52] LABS: Parathyroid Hormone Intact 81.4 pg/mL (14.0-72.0)
[2018-01-05 12:32] LABS: Zinc, Serum 52 ug/dL (60-130)
[2018-01-06 08:47] LABS: Vitamin A 27 ug/dL (38-106)
[2018-01-06 08:51] LABS: Vitamin B1 53 ug/L (38-122)
[2018-01-06 21:12] LABS: Selenium 100 mcg/L (63-160)
== END | disposition home or self-care (01) ==
LOC: BARWHC3 14:59
PROVIDERS: ATTEND Surgery Plastic and Reconstructive Surgery
DX: E55.9 Vitamin D deficiency, unspecified (principal); E61.1 Iron deficiency; E50.9 Vitamin A deficiency, unspecified; E60 Dietary zinc deficiency
CPT/HCPCS: 84255; 84134; 84425; 80061; 80053; 82607; 82728; 82525; 82746; 83540; 83550; 83735; 84100; 84443; 84590; 84630; 85027; 85610; 85730; 82306; 83970; 83036; 97803; 36415; G0463; 99211

== ENCOUNTER 2018-01-20 08:14 | Emergency (ER) | payer OTHER ==
[2018-01-20 08:18] VITALS: BP 128/77; PULSE 89; RESP 18; TEMP 97.4
--- NOTE | 2018-01-20 08:42 | ED ---
ENT HPI - General Chief complaint: ENT Stated complaint: sore throat Time Seen by Provider: 01/20/18 08:31 Source: patient, RN notes reviewed, old records reviewed Mode of arrival: ambulatory Limitations: no limitations - History of Present Illness Initial comments: 28-year-old female presents weren't as her mentation plan 1 day of sore throat. Has had episode of diarrhea yesterday. She states she's had no fever or chills. Does report that she's felt with her glands are swollen in her neck. Patient states that she's had no dental pain. No sinus pressure or nasal drainage. Denies any ear pain. Patient states that she's had no fever or chills. She was using throat lozenges for helping with the pain. Patient has history of gastric bypass surgery. Patient denies any recent fever, chills, shortness of breath, chest pain, back pain, abdominal pain, nausea vomiting, numbness or tingling, dysuria or hematuria, constipation, headaches or visual changes, or any other current symptoms - Related Data Home Medications Medication Instructions Recorded Confirmed Levothyroxine Sodium [Synthroid] 450 mcg PO DAILY 12/08/16 01/17/18 Cholecalciferol (Vitamin D3) 2,000 unit PO DAILY 01/12/18 01/17/18 [Vitamin D3] Ferrous Sulfate [Iron] 325 mg PO DAILY 01/12/18 01/17/18 Allergies Allergy/AdvReac Type Severity Reaction Status Date / Time No Known Allergies Allergy Verified 01/20/18 08:18 Review of Systems ROS Statement: Those systems with pertinent positive or pertinent negative responses have been documented in the HPI. ROS Other: All systems not noted in ROS Statement are negative. Past Medical History Past Medical History: Diabetes Mellitus, GERD/Reflux, Hypertension, Sleep Apnea/ CPAP/BIPAP, Thyroid Disorder Additional Past Medical History / Comment(s): MIGRAINES, RLS, USES C-PAP., STATES TREATED FOR H -PYLORI. , DDD ., PT STATES SOB WITH EXERTION. History of Any Multi-Drug Resistant Organisms: None Reported Past Surgical History: Section, Cholecystectomy, Tubal Ligation Additional Past Surgical History / Comment(s): Gastric bypass Past Anesthesia/Blood Transfusion Reactions: Motion Sickness, Postoperative Nausea & Vomiting (PONV) Additional Past Anesthesia/Blood Transfusion Reaction / Comment(s): . Past Psychological History: ADD/ADHD, Depression Smoking Status: Never smoker Past Alcohol Use History: None Reported Past Drug Use History: None Reported - Past Family History Father Family Medical History: No Reported History Additional Family Medical History / Comment(s): of kidney failure General Exam - General Exam Comments Initial Comments: 37-year-old female. Alert. No distress. Limitations: no limitations General appearance: alert, in no apparent distress Head exam: Present: atraumatic, normocephalic, normal inspection Eye exam: Present: normal appearance, PERRL, EOMI. Absent: scleral icterus, conjunctival injection, periorbital swelling ENT exam: Present: normal exam, mucous membranes moist. Absent: normal oropharynx (Pharyngeal erythema, no exudate) Neck exam: Present: normal inspection. Absent: tenderness, meningismus, lymphadenopathy Respiratory exam: Present: normal lung sounds bilaterally. Absent: respiratory distress, wheezes, rales, rhonchi, stridor Cardiovascular Exam: Present: regular rate, normal rhythm, normal heart sounds. Absent: systolic murmur, diastolic murmur, rubs, gallop, clicks GI/Abdominal exam: Present: soft, normal bowel sounds. Absent: distended, tenderness, guarding, rebound, rigid Extremities exam: Present: normal inspection, full ROM, normal capillary refill. Absent: tenderness, pedal edema, joint swelling, calf tenderness Back exam: Present: normal inspection Neurological exam: Present: alert, oriented X3, CN II-XII intact Psychiatric exam: Present: normal affect, normal mood Skin exam: Present: warm, dry, intact, normal color. Absent: rash Course Vital Signs 01/20/18 08:15 Temperature 97.4 F L Pulse Rate 89 Respiratory 18 Rate Blood Pressure 128/77 O2 Sat by Pulse 97 Oximetry Medical Decision Making - Medical Decision Making 37-year-old female presents chief complaint of sore throat for one day. She also had an episode of diarrhea. No blood in her stools. No abdominal pain. Patient throat is somewhat erythematous. No exudates. She has some minor adenopathy. At this time patient's rapid strep is negative. Discussed doing a culture. Discussed likely viral pharyngitis. Discussed Motrin Tylenol and lozenges. Given a note for work. All questions answered return parameters were discussed. - Lab Data Lab Results 01/20/18 Range/Units 08:20 Group A Strep Rapid Negative (Negative) Disposition Clinical Impression: Pharyngitis Disposition: HOME SELF-CARE Condition: Good Instructions: Pharyngitis (ED) Additional Instructions: Patient denies use throat lozenges. Take Motrin and Tylenol for pain. Return to the emergency department if any alarming signs or symptoms occur. If you do have a positive throat culture we will call you notify you in 2 days. Is patient prescribed a controlled substance at d/c from ED?: No If prescribed controlled substance>3 days was MAPS reviewed?: No When asked, does pt state using other controlled substances?: No Referrals: Anshu Ritter DO [Primary Care Provider] - 1-2 days Time of Disposition: 08:40
== END 2018-01-20 08:45 | disposition home or self-care (01) ==
LOC: EC 08:14
DX: J02.9 Acute pharyngitis, unspecified (principal); R19.7 Diarrhea, unspecified; E07.9 Disorder of thyroid, unspecified; G47.30 Sleep apnea, unspecified; Z99.89 Dependence on other enabling machines and devices; Z79.899 Other long term (current) drug therapy
CPT/HCPCS: 87081; 87430; 99283

== ENCOUNTER → 2018-11-29 | Outpatient (CLI) | payer OTHER ==
[2018-11-29 14:41] VITALS: BP 139/67; PULSE 76; TEMP 98.2; BMI 45.5
--- NOTE | 2018-11-29 15:07 | P.PN ---
Subjective Progress Note Date: 11/29/18 DATE: 11/29/2018 CHIEF COMPLAINT: Status post gastric bypass HISTORY OF PRESENT ILLNESS: Star Bradshaw is a 2`-year-old female who is status post gastric bypass nausea 12/16/[address] Blanca. She is 2 years out. She has limited food assistance. She has new thyroid problems. She is only on 3 medications. No constipation. She has a sporadic work schedule from evenings to nights. She continues to gain weight in the last 2 years. Prior to her gastric bypass, she had insulin-dependent diabetes including hypertensive heart disease, sleep apnea, and degenerative joint disease. At height of 5 feet 7.25 inches, her ideal body weight is 158 pounds. Her initial weight was 364 pounds. Today she comes in weighing 294 pounds from 274 pounds, 1 year ago. She has gained 20 pounds. Total weight loss down from 90 pounds to 70 pounds. Percent excess weight loss is 34%. Her body mass index was 56.7. Today her body mass index is 45.9. She is 136 pounds overweight. PAST MEDICAL HISTORY: 1. Morbid obesity 2. Body mass index of 56.7, initial 3. Hypothyroidism 4. Diabetes type 2 5. Gastroesophageal reflux disease 6. Hypertensive heart disease 7. Obstructive sleep apnea 8. Migraines 9. Restless leg syndrome 10. Degenerative disc disease 11. Motion sickness 12. Postop nausea vomiting PAST SURGICAL HISTORY: 1. Status post gastric bypass 2. Cholecystectomy 3. Tubal ligation 4. section HOME MEDICATIONS: 1. Synthroid 2. Iron 3. Vitamin D ALLERGIES: Denies. SOCIAL HISTORY: No active tobacco use. FAMILY HISTORY: No family history of ulcerative colitis disease or Crohn's disease. Family history of morbid obesity. No lupus in the family. No reports of stomach or esophageal cancer. Family history of diabetes type 2. REVIEW OF ORGAN SYSTEMS: CONSTITUTIONAL: At height of 5 feet 7.25 inches, her ideal body weight is 158 pounds. Her initial weight was 364 pounds. Her body mass index was 56.7. HEENT: Denies any active troubles with vision or hearing. No troubles with swallowing. ENDOCRINE: Has hypothyroidism. Resolved diabetes type 2. CARDIOVASCULAR: No reports of palpitations or heart attacks or chest pain. Hypertension improved. RESPIRATORY: Has daytime somnolence. No asthma. Obstructive sleep apnea resolved. GI: Denies any bright red blood per rectum. No diarrhea or constipation. MUSCULOSKELETAL: Has lower back pain and joint pain. Has osteoarthritis of the knees. Joint pain improved. NEURO: No headaches. No seizure disorders. PSYCH: No depression or suicidal ideation. RHEUMATOLOGIC: No lupus. No rheumatoid arthritis. HEMATOLOGIC: Denies any abnormal bleeding or bruising. No personal history of DVTs. SKIN: No rash. No skin cancer. PHYSICAL EXAM: VITAL SIGNS: Height 5 foot 7.25 inches, weight 294 pounds. BMI 45.9 Vital Signs Temp 98.2 F 11/29/18 14:19 Pulse 76 11/29/18 14:19 Resp BP 139/67 11/29/18 14:19 Pulse Ox GENERAL: Well-developed in no acute distress. HEENT: No scleral icterus. Extraocular movements grossly intact. Hears conversational speech. No nasal drainage. NECK: Supple without lymphadenopathy. CHEST: Nonlabored respirations with equal bilateral excursions. CARDIOVASCULAR: Regular rate and regular rhythm. Distal 2+ pulses. ABDOMEN: Obese, soft, nontender, nondistended. No incisional hernia. MUSCULOSKELETAL: No clubbing, cyanosis. Gross strength 5/5 distal lower extremities. 2+ pre-tibial pitting edema. NEURO: No focal or lateralizing signs. Cranial nerves 2 through 12 grossly within normal limits. PSYCH: Appropriate affect. Alert and oriented to person, place and time. SKIN: Good skin turgor. Well perfused. ASSESSMENT: 1. Morbid obesity due to excess calories. 2. Body mass index of 56.7 down to 45.9 3. Osteoarthritis of the knees, improved 4. Osteoarthritis of the hips, improved 5. Osteoarthritis of the lower back, improved 6. Obstructive sleep apnea, resolved 7. Hypertensive heart disease, resolved 8. Family history of morbid obesity. 9. Family history of diabetes type 2. 10. Hypothyroidism, uncontrolled 11. Diabetes type 2, insulin-dependent improved 12. Gastroesophageal reflux disease, resolved 13. Migraines 14. Restless leg syndrome, resolved 15. Degenerative disc disease 16. Iron deficiency anemia, new 17. Vitamin D deficiency, new 18. Dietary surveillance and counseling 19. Vitamin A deficiency, new PLAN: 1. Recommend bariatric metabolic panel. 2. Recommend follow-up bariatric dietitian. 3. Recommend new Multivitamins 4. Adjustment of her thyroid medication to increase for poorly controlled thyroid function with medical reconciliation performed. Objective - Vital Signs Vital signs: Vital Signs Temp 98.2 F 11/29/18 14:19 Pulse 76 11/29/18 14:19 Resp BP 139/67 11/29/18 14:19 Pulse Ox Intake & Output 11/28/18 11/29/18 11/29/18 18:59 06:59 18:59 Weight 133.855 kg
== END ==
LOC: BARWHC3 13:36
PROVIDERS: ATTEND Surgery Plastic and Reconstructive Surgery
DX: Z48.815 Encounter for surgical aftercare following surgery on the digestive system (principal); E66.01 Morbid (severe) obesity due to excess calories; E03.9 Hypothyroidism, unspecified; E11.9 Type 2 diabetes mellitus without complications; G43.909 Migraine, unspecified, not intractable, without status migrainosus; R11.0 Nausea; D50.9 Iron deficiency anemia, unspecified; E50.9 Vitamin A deficiency, unspecified; M17.0 Bilateral primary osteoarthritis of knee; M16.0 Bilateral primary osteoarthritis of hip; E55.9 Vitamin D deficiency, unspecified; Z90.49 Acquired absence of other specified parts of digestive tract; Z98.890 Other specified postprocedural states; Z98.51 Tubal ligation status; Z79.899 Other long term (current) drug therapy; Z68.42 Body mass index [BMI] 45.0-49.9, adult; Z83.3 Family history of diabetes mellitus; Z98.84 Bariatric surgery status; Z79.4 Long term (current) use of insulin; Z71.3 Dietary counseling and surveillance
CPT/HCPCS: 99211

== ENCOUNTER → 2018-11-29 | Outpatient (CLI) | payer OTHER ==
[2018-11-29 16:41] LABS: HCT 37.6 % (34.0-46.0); HGB 11.5 gm/dL (11.4-16.0); Hypochromasia Marked; MCH 22.4 pg (25.0-35.0); MCHC 30.6 g/dL (31.0-37.0); MCV 73.3 fL (80.0-100.0); Mean Platelet Volume 7.8; Microcytosis Slight; Platelet Count 311 k/uL (150-450); RBC 5.13 m/uL (3.80-5.40); RDW 14.5 % (11.5-15.5); WBC 9.9 k/uL (3.8-10.6)
[2018-11-29 16:57] LABS: INR 0.9 (<1.2); Prothrombin Time 9.7 sec (9.0-12.0)
[2018-11-29 16:59] LABS: Partial Thromboplastin Time 21.7 sec (22.0-30.0)
[2018-11-30 00:12] LABS: Hemoglobin A1C 6.8 % (4.0-6.0)
[2018-11-30 00:52] LABS: Parathyroid Hormone Intact 110.5 pg/mL (14.0-72.0)
[2018-11-30 01:02] LABS: Albumin 4.4 g/dL (3.80-4.90); Albumin/Globulin Ratio 1.63 (1.60-3.17); Anion Gap 10.7 mmol/L (4.00-12.00); Calcium 9.1 mg/dL (8.7-10.3); Carbon Dioxide 23.3 mmol/L (21.6-31.8); Globulin 2.7 g/dL (1.6-3.3); LDL Cholesterol,Calculated 107.4 mg/dL (0.0-131.0); Magnesium 1.7 mg/dL (1.5-2.4); Potassium 4.5 mmol/L (3.5-5.5); Total Protein 7.1 g/dL (6.2-8.2); VLDL Calculation 34.6 mg/dL (5.00-40.00)
[2018-11-30 01:20] LABS: Folate, Serum 9.3 ng/mL
[2018-11-30 01:31] LABS: Iron Saturation 3.88 (12.00-45.00); Vitamin D 25 Hydroxy 14.1 ng/mL (30.0-100.0)
[2018-11-30 15:43] LABS: Zinc, Serum 47 ug/dL (60-130)
[2018-12-01 09:38] LABS: Vitamin A 32 ug/dL (38-106)
[2018-12-01 21:27] LABS: Selenium 112 mcg/L (63-160)
[2018-12-04 08:44] LABS: Vit B1(Thiamine) 69 ug/L (38-122)
== END ==
LOC: LABWHC1 15:26
PROVIDERS: ATTEND Surgery Plastic and Reconstructive Surgery
DX: Z48.815 Encounter for surgical aftercare following surgery on the digestive system (principal); E66.01 Morbid (severe) obesity due to excess calories; E21.1 Secondary hyperparathyroidism, not elsewhere classified; D50.9 Iron deficiency anemia, unspecified; K90.9 Intestinal malabsorption, unspecified; E44.0 Moderate protein-calorie malnutrition; E55.9 Vitamin D deficiency, unspecified; K74.1 Hepatic sclerosis; N19 Unspecified kidney failure; K50.90 Crohn's disease, unspecified, without complications; Z98.84 Bariatric surgery status
CPT/HCPCS: 36415; 80053; 80061; 82306; 82525; 82607; 82728; 82746; 83036; 83540; 83550; 83735; 83970; 84100; 84134; 84255; 84425; 84443; 84590; 84630; 85027; 85610; 85730

== ENCOUNTER → 2020-08-28 | Outpatient (CLI) | payer BC ==
[~2020-08-28] MED LIST changes: -AMPICILLIN-SULBACTAM 3 GM in SODIUM CHLORIDE 0.9% 100 ML IVPB ONE; -CHLORHEXIDINE GLUCONATE 15 ML CUP MUCOUS MEM ONE; -DEXAMETHASONE SOD PHOSPHATE 10 MG/ML 1 ML VIAL IV ONE; -ENOXAPARIN 40 MG/0.4 ML SYRINGE SQ STA; -HYDROmorphone 1 MG/ML 1 ML SYRINGE IVP PRN; -LIDOCAINE 1% 20 ML VIAL (10MG/ML) FOR IV START INTRADERMA PRN; -MIDAZOLAM 2 MG/2 ML VIAL IV PRN; -ONDANSETRON 4 MG/2 ML VIAL IVP ONE; -PANTOPRAZOLE 40 MG/10 ML VIAL IV STA; -SCOPOLAMINE 1.5MG/72HR PATCH TRANSDERM ONE; +SODIUM CHLORIDE 0.9% 500 ML 500 ML in EMPTY BAG 1 BAG IV PRN; +SODIUM FERRIC GLUCONAT-SUCROSE 125 MG in SODIUM CHLORIDE 0.9% 100 ML IVPB NR; -ceFAZolin 3 GM in SODIUM CHLORIDE 0.9% 100 ML IVPB ONE
[2020-08-28 13:05] VITALS: BP 141/80; PULSE 68; RESP 16; TEMP 97.8
== END | disposition home or self-care (01) ==
LOC: PROCWHC3 11:36
PROVIDERS: ATTEND Nurse Practitioner Family
DX: D50.9 Iron deficiency anemia, unspecified (principal)
CPT/HCPCS: 96365; J2916

== ENCOUNTER → 2020-12-08 | Outpatient (CLI) | payer BC ==
[2020-12-08 13:10] VITALS: BP 126/81; PULSE 65; RESP 16; TEMP 98.2
== END ==
LOC: PROCWHC3 13:00
PROVIDERS: ATTEND Family Medicine
DX: D50.9 Iron deficiency anemia, unspecified (principal)
CPT/HCPCS: 96365; J2916

== ENCOUNTER → 2021-02-13 | Outpatient (CLI) | payer BC ==
[~2021-02-13] MED LIST changes: +IRON DEXTRAN 100 MG/2 ML VIAL IV ONE; +IRON DEXTRAN 975 MG in SODIUM CHLORIDE 0.9% 250 ML IV ONE; -SODIUM FERRIC GLUCONAT-SUCROSE 125 MG in SODIUM CHLORIDE 0.9% 100 ML IVPB NR
[2021-02-13 09:14] VITALS: RESP 16; TEMP 98.3
[2021-02-13 09:48] VITALS: BP 102/55; PULSE 68
== END ==
LOC: PROCWHC3 08:52
PROVIDERS: ATTEND Family Medicine
DX: D64.9 Anemia, unspecified (principal)
CPT/HCPCS: 96366; 96374; J1750

== ENCOUNTER → 2021-08-12 | Outpatient (CLI) | payer BC ==
[~2021-08-12] MED LIST changes: -IRON DEXTRAN 100 MG/2 ML VIAL IV ONE; +IRON DEXTRAN 975 MG in SODIUM CHLORIDE 0.9% 250 ML IV NR
[2021-08-12 13:12] VITALS: BP 139/68; PULSE 84; RESP 16; TEMP 98.1
[2021-08-12] MEDS: IRON DEXTRAN 100 MG/2 ML VIAL IV NR ×2 (13:35→13:55)
== END ==
LOC: PROCWHC3 12:38
PROVIDERS: ATTEND Family Medicine
DX: D64.9 Anemia, unspecified (principal)
CPT/HCPCS: 96365; J1750

== ENCOUNTER → 2021-08-24 | Outpatient (CLI) | payer BC ==
--- NOTE | 2021-08-24 15:50 | XR ---
EXAMINATION TYPE: XR foot complete LT DATE OF EXAM: 08/24/2021 COMPARISON: 02/03/2014 HISTORY: Pain TECHNIQUE: Three views are submitted. FINDINGS: The osseous structures are intact. There is no acute fracture or dislocation. Mild hypertrophic ar thropathy first MTP. Large plantar calcaneal spur. IMPRESSION: 1. Large plantar calcaneal spur. 2. Mild hypertrophic arthropathy first MTP.
== END | disposition home or self-care (01) ==
LOC: RADXRMAIN 15:31
DX: M77.32 Calcaneal spur, left foot (principal); M19.072 Primary osteoarthritis, left ankle and foot

== ENCOUNTER → 2022-09-07 | Outpatient (CLI) | payer BC ==
--- NOTE | 2022-09-07 11:36 | XR ---
EXAMINATION TYPE: XR foot complete RT DATE OF EXAM: 09/07/2022 COMPARISON: NONE HISTORY: Pain TECHNIQUE: Three views are submitted. FINDINGS: The osseous structures are intact. There is no acute fracture or dislocation. MTP first joint mild to moderate arthropathy. Large calcaneal spur. IMPRESSION: 1. No acute fracture or dislocation. If symptoms persist, follow-up exam in 7 to 10 days could be ob tained.
== END | disposition home or self-care (01) ==
LOC: RADXRMAIN 10:47
PROVIDERS: ATTEND Family Medicine
DX: M79.671 Pain in right foot (principal)

== ENCOUNTER → 2022-10-02 | Outpatient (CLI) | payer BC ==
[2022-10-02 16:55] LABS: ALT 19 U/L (8-44); AST 22 U/L (13-35); African American GFR (CKD) 128.5 (60.0-200.0); Albumin 4.3 g/dL (3.8-4.9); Albumin/Globulin Ratio 1.43 (1.60-3.17); Alkaline Phosphatase 124 U/L (41-126); BUN/Creat Ratio 13.17 Ratio (12.00-20.00); Blood Urea Nitrogen 7.9 mg/dL (9.0-27.0); Carbon Dioxide 26.1 mmol/L (20.0-27.5); Chloride 101 mmol/L (96-109); Creatine Kinase 172 U/L (26-186); Glucose 122 mg/dL (70-110); Non-African American GFR(CKD) 110.9 (60.0-200.0); Potassium 4.2 mmol/L (3.5-5.5); Rheumatoid Factor, Qnt <10 IU/mL (0-15); Sodium 137 mmol/L (135-145); Total Protein 7.3 g/dL (6.2-8.2); Uric Acid 3.6 mg/dL (2.9-7.7)
== END | disposition home or self-care (01) ==
LOC: LABWHC1 12:12
PROVIDERS: ATTEND Family Medicine
DX: M25.50 Pain in unspecified joint (principal)
CPT/HCPCS: 36415; 80053; 82550; 84550; 86038; 86431; 86812

== ENCOUNTER 2022-10-29 10:15 | Emergency (ER) | payer BC ==
[2022-10-29] MEDS ORDERED: ORPHENADRINE 30 MG/ML 2 ML VIAL IM STA (11:11)
[2022-10-29] MEDS ORDERED: KETOROLAC 15 MG/ML 1 ML VIAL IM STA (11:11)
--- NOTE | 2022-10-29 11:19 | ED ---
Lower Extremity Injury HPI - General Chief Complaint: Extremity Injury, Lower Stated Complaint: headache, hip pain, palpitations Time Seen by Provider: 10/29/22 10:52 Source: patient, RN notes reviewed, old records reviewed Mode of arrival: ambulatory Limitations: no limitations - History of Present Illness Initial Comments: This is a well-appearing 42-year-old female that presents ambulatory to the emergency room with multiple complaints. Patient states she came to emergency room mostly for right hip pain that she has had for 3 weeks. Did take Motrin prior to arrival with some relief. She denies any injuries. She states that she also has a headache but does have a history of migraine headaches, prescribed Ubrelvy but did not take it today. She is also having some increased urination and is concerned for dehydration and feeling palpitations. She denies any nausea vomiting or diarrhea. No shortness of breath. No fevers. She does have a history of migraines, GERD, RLS, gastric bypass surgery, cholecystectomy, sleep apnea, morbid obesity and diabetes. She states that she was put on ozempic by her PCP a couple months ago. -: week(s) (3) Injury: Hip: Right Severity scale (1-10): 8 Improves With: rest Worsens With: weight bearing Treatments Prior to Arrival: NSAIDS - Related Data Home Medications Medication Instructions Recorded Confirmed Cholecalciferol (Vitamin D3) 50,000 unit PO WEEKLY 11/29/18 08/12/21 [Vitamin D3] Cyanocobalamin [Vitamin B-12 1,000 mg INJ QMONTH 11/29/18 08/12/21 Injection] Levothyroxine Sodium [Tirosint] 100 mcg PO DAILY 02/13/21 08/12/21 Previous Rx's Medication Instructions Recorded Cyclobenzaprine [Flexeril] 10 mg PO TID PRN #15 tab 10/29/22 Ketorolac [Toradol] 10 mg PO Q8HR PRN #15 tab 10/29/22 Lidocaine 5% Patch [Lidoderm] 1 patch TOPICAL DAILY PRN #14 patch 10/29/22 Allergies Allergy/AdvReac Type Severity Reaction Status Date / Time No Known Allergies Allergy Verified 10/29/22 10:35 Review of Systems ROS Statement: Those systems with pertinent positive or pertinent negative responses have been documented in the HPI. ROS Other: All systems not noted in ROS Statement are negative. Past Medical History Past Medical History: Blood Disorder, Diabetes Mellitus, GERD/Reflux, Hypertension, Sleep Apnea/CPAP/BIPAP, Thyroid Disorder Additional Past Medical History / Comment(s): MIGRAINES, RLS, USES C-PAP., STATES TREATED FOR H -PYLORI. , DDD ., PT STATES SOB WITH EXERTION. ANEMIA. History of Any Multi-Drug Resistant Organisms: None Reported Past Surgical History: Bariatric Surgery, Section, Cholecystectomy, Tubal Ligation Additional Past Surgical History / Comment(s): Gastric bypass Past Anesthesia/Blood Transfusion Reactions: Motion Sickness, Postoperative Nausea & Vomiting (PONV) Additional Past Anesthesia/Blood Transfusion Reaction / Comment(s): . Past Psychological History: ADD/ADHD, Depression Smoking Status: Never smoker Past Alcohol Use History: None Reported Past Drug Use History: None Reported - Past Family History Father Family Medical History: No Reported History Additional Family Medical History / Comment(s): of kidney failure General Exam Limitations: no limitations General appearance: alert, in no apparent distress Head exam: Present: atraumatic Eye exam: Absent: scleral icterus, conjunctival injection, periorbital swelling ENT exam: Present: mucous membranes moist Expanded Mouth exam: Present: tongue normal, tongue elevation. Absent: drooling, trismus, muffled voice Throat exam: negative: tonsillar erythema, tonsillomegaly, tonsillar exudate, R peritonsillar mass, L peritonsillar mass Respiratory exam: Present: normal lung sounds bilaterally. Absent: respiratory distress, accessory muscle use Cardiovascular Exam: Present: regular rate GI/Abdominal exam: Present: soft. Absent: distended, rigid Extremities exam: Present: normal inspection, normal capillary refill. Absent: pedal edema Right Hip exam: Present: tenderness (right lateral proximal femur), pelvic stability. Absent: swelling, abrasion, laceration, ecchymosis, deformity, crepitus, dislocation, erythema, external rotation, internal rotation, shortening Upper Leg exam: Present: tenderness. Absent: swelling, abrasion, laceration, ecchymosis, deformity, crepitus, dislocation, erythema Knee exam: Present: normal inspection Lower Leg exam: Present: normal inspection Neurovascular tendon exam: Present: no vascular compromise. Absent: extremity cold to touch, pallor, foot drop Gait: observed and normal Back exam: Present: normal inspection. Absent: tenderness, CVA tenderness (R), CVA tenderness (L), paraspinal tenderness, vertebral tenderness, rash noted Neurological exam: Present: alert, oriented X3, normal gait Psychiatric exam: Present: normal affect, normal mood Skin exam: Present: warm, dry, normal color. Absent: cyanosis, diaphoretic, petechiae, pallor Course Vital Signs 10/29/22 10/29/22 10:34 12:24 Temperature 98.7 F 97.6 F Pulse Rate 83 81 Respiratory 20 18 Rate Blood Pressure 135/79 126/64 O2 Sat by Pulse 99 97 Oximetry Medical Decision Making - Medical Decision Making Urinalysis shows no evidence of glucose or infection. Accu-Chek 127 X-ray of the right hip interpreted by me shows no evidence of fracture or dislocation of the hip or pelvis. Radiologist interpretation no acute fracture or dislocation in the pelvis or right hip. No focal lytic or sclerotic lesions seen in the proximal right femur. EKG shows sinus rhythm with a ventricular rate of 75, [place] interval 0.159, QRS 0.73, QTC 0.403, no ectopy. She'll be prescribed Toradol, Lidoderm and Flexeril for hip pain. Directed to follow up with her primary care doctor. She is agreeable to this plan of care. She was given 2 days off work as requested. Case discussed with Dr. Stein Was pt. sent in by a medical professional or institution? @ -no Did you speak to anyone other than the patient for history? @ -no Did you review nursing and triage notes? @ -yes i agree Were old charts reviewed? @ no Differential Diagnosis? @ -Hip fracture, contusion, musculoskeletal pain, Differential Headache: Migraine, tension, cluster, carbon monoxide, central venous thrombosis, pension [employer]arma temporal arteritis, acute closure glaucoma, intercranial hemorrhage, mastoiditis, sinusitis, head injury, this is not meant to be an all-inclusive list. EKG interpreted by me (3pts min.)? @ -yes as above X-rays interpreted by me (1pt min.)? @ -yes as above CT interpreted by me (1pt min.)? @ -[none] U/S interpreted by me (1pt. min.)? @ -[none] What testing was considered but not performed? (CT, X-rays, U/S, labs)? Why? @ no What meds were considered but not given? Why? @ -none Did you discuss the management of the patient with other professionals? @ -no Did you reconcile home meds? @ -no Was smoking cessation discussed for >3mins.? @ -no Was critical care preformed (if so, how long)? @ -no Were there social determinants of health that impacted care today? How? (Homelessness, low income, unemployed, alcoholism, drug addiction, transportation, low edu. Level, literacy, decrease access to med. care, [facility], rehab)? @ -none Was there de-escalation of care discussed even if they declined? (Discuss DNR or withdrawal of care, Hospice)? @ -no What co-morbidities impacted this encounter? (DM, HTN, Smoking, COPD, CAD, Cancer, CVA, Hep., AIDS, mental health diagnosis, sleep apnea, morbid obesity)? @ -History of diabetes, GERD, migraines, hypertension, morbid obesity, sleep apnea Was patient admitted / discharged? @ -Discharged Undiagnosed new problem with uncertain prognosis? @ -[none] Drug Therapy requiring intensive monitoring for toxicity (Heparin, Nitro, Insulin, Cardizem)? @ -[none] Were any procedures done? @ -no Diagnosis/symptom? @ -Acute headache, right hip pain Acute, or Chronic, or Acute on Chronic? @ -Acute Uncomplicated (without systemic symptoms) or Complicated (systemic symptoms)? @ -Uncomplicated Side effects of treatment? @ -[none] Exacerbation, Progression, or Severe Exacerbation] @ -[no] Poses a threat to life or bodily function? @ -[no] - Lab Data Lab Results 10/29/22 10/29/22 Range/Units 11:18 12:01 POC Glucose (mg/dL) 127 H (70-110) mg/dL POC Glu Neurology Director ID [place] Urine Color Yellow Urine Appearance Clear (Clear) Urine pH 6.0 (5.0-8.0) Ur Specific [place] 1.026 (1.001-1.035) Urine Protein Trace H (Negative) Urine Glucose (UA) Negative (Negative) Urine Ketones Negative (Negative) Urine Blood Negative (Negative) Urine Nitrite Negative (Negative) Urine Bilirubin Negative (Negative) Urine Urobilinogen 2.0 (<2.0) mg/dL Ur Leukocyte Esterase Negative (Negative) - EKG Data EKG shows normal: sinus rhythm (Sinus rhythm with a ventricular rate of 75, [place] interval 0.159, QRS 0.73, QTC 0.403) Disposition Clinical Impression: Hip pain, right, Acute headache, Type 2 diabetes mellitus Disposition: HOME SELF-CARE Condition: Good Instructions (If sedation given, give patient instructions): Acute Headache (ED), Hip Pain (ED) Additional Instructions: Use Lidoderm patches 12 hours on and then 12 hours off to the site of your hip pain. Take Toradol as prescribed but do not take Motrin or Advil products when taking this medication. Flexeril as a muscle relaxer but do not operate heavy machinery or drive a vehicle when taking this medication. For you migraine headaches continue taking your Ubrelvy as prescribed. Follow-up with your primary care doctor next week. Return to the emergency room with any new or concerning symptoms. Prescriptions: Cyclobenzaprine [Flexeril] 10 mg PO TID PRN #15 tab PRN Reason: pain Lidocaine 5% Patch [Lidoderm] 1 patch TOPICAL DAILY PRN #14 patch PRN Reason: Pain Ketorolac [Toradol] 10 mg PO Q8HR PRN #15 tab PRN Reason: Pain Is patient prescribed a controlled substance at d/c from ED?: No Referrals: Anshu Ritter DO [Primary Care Provider] - 1-2 days Time of Disposition: 12:08
[2022-10-29 11:38] LABS: Appearance,Urine Clear (Clear); Bilirubin,Urine Negative (Negative); Blood,Urine Negative (Negative); Color,Urine Yellow; Glucose,Urine (UA) Negative (Negative); Ketones,Urine Negative (Negative); Leukocyte Esterase,Urine Negative (Negative); Nitrite,Urine Negative (Negative); Protein,Urine Trace (Negative); Specific Gravity,Urine 1.026 (1.001-1.035)
--- NOTE | 2022-10-29 11:47 | XR ---
EXAMINATION TYPE: XR Hip RT and AP Pelvis DATE OF EXAM: 10/29/2022 COMPARISON: NONE HISTORY: Pain TECHNIQUE: A single AP view of the pelvis is obtained. Two views of the right hip are obtained. FINDINGS: There is no acute fracture/dislocation evident in the pelvis. The hip and sacroiliac join ts appear symmetric and unremarkable. The overlying soft tissue appears unremarkable. Two views of right hip show no acute fracture or dislocation. No focal lytic or sclerotic lesion see n in the proximal right femur. The overlying soft tissue is unremarkable. Surgical clips in the pel vis. IMPRESSION: There is no acute fracture or dislocation in the pelvis or right hip.
[2022-10-29 12:02] LABS: Glucose,Whole Blood 127 mg/dL (70-110)
[2022-10-29] MEDS ORDERED: LIDOCAINE 5% PATCH TOPICAL SCH (12:15)
[2022-10-29 12:25] VITALS: BP 126/64; PULSE 81; RESP 18; TEMP 97.6
== END 2022-10-29 12:25 | disposition home or self-care (01) ==
LOC: EC 10:15
DX: E11.9 Type 2 diabetes mellitus without complications (principal); R51.9 Headache, unspecified; M25.551 Pain in right hip; K21.9 Gastro-esophageal reflux disease without esophagitis; I10 Essential (primary) hypertension; E07.9 Disorder of thyroid, unspecified; F32.A Depression, unspecified; Z79.890 Hormone replacement therapy; Z79.899 Other long term (current) drug therapy
CPT/HCPCS: 36415; 93005; 81003; 73502; 99285; 96372 ×2; J2360; J1885

== ENCOUNTER → 2023-01-10 | Outpatient (CLI) | payer BC ==
[2023-01-10 22:21] LABS: T4, Free (Free Thyroxine) 1.31 ng/dL (0.800-1.800)
== END | disposition home or self-care (01) ==
LOC: LABWHC1 12:32
PROVIDERS: ATTEND Family Medicine
DX: E03.8 Other specified hypothyroidism (principal)
CPT/HCPCS: 36415; 84439; 84443

== ENCOUNTER 2023-07-10 15:09 | Emergency (ER) | payer OTHER ==
[2023-07-10] MEDS ORDERED: KETOROLAC 15 MG/ML 1 ML VIAL IVP STA (16:55)
[2023-07-10] MEDS ORDERED: diphenhydrAMINE 50 MG/ML 1 ML VIAL IVP STA (16:55)
[2023-07-10] MEDS ORDERED: ONDANSETRON ODT 4 MG TAB PO STA (16:55)
[2023-07-10] MEDS ORDERED: SODIUM CHLORIDE 0.9% 1,000 ML IV STA (16:55)
[2023-07-10] MEDS ORDERED: ONDANSETRON 4 MG/2 ML VIAL IVP STA (17:30)
[2023-07-10 17:32] LABS: Anisocytosis Slight; Basophils % (A) 0 %; Eosinophils # (A) 0.2 k/uL (0-0.7); Eosinophils % (A) 2 %; HCT 42.4 % (34.0-46.0); HGB 14.2 gm/dL (11.4-16.0); Lymphocytes # (A) 3.3 k/uL (1.0-4.8); Lymphocytes % (A) 38 %; MCHC 33.5 g/dL (31.0-37.0); MCV 83.5 fL (80.0-100.0); Mean Platelet Volume 7.9; Monocytes # (A) 0.3 k/uL (0-1.0); Monocytes % (A) 3 %; Neutrophils # (A) 4.7 k/uL (1.3-7.7); Neutrophils % (A) 54 %; Platelet Count 253 k/uL (150-450); RBC 5.07 m/uL (3.80-5.40); RDW 17.3 % (11.5-15.5); WBC 8.6 k/uL (3.8-10.6)
--- NOTE | 2023-07-10 17:41 | ED ---
General Adult HPI - General Chief complaint: Headache Stated complaint: migraine Time Seen by Provider: 07/10/23 16:11 Source: patient Mode of arrival: ambulatory Limitations: no limitations - History of Present Illness Initial comments: 43-year-old female presenting to the ED with a chief complaint of headache. Patient notes for the past 4 days has had headache with associated phonophobia, photophobia, nausea, and blurred vision. Patient notes a history of migraines and states that this is more severe and has unusual features. Reports that location of headache is not in its usual location and also states that she does not typically have any blurred vision with her headaches. Additionally, patient notes that she is prescribed Ubrogepant. Patient reports that this typically completely resolves migraine symptoms after just 1 dose however despite taking this past few days patient reports no relief. She does reports visiting the chiropractor on a regular basis. Last manipulation was 3 days ago. Denies chest pain or shortness of breath. No other complaints. - Related Data Home Medications Medication Instructions Recorded Confirmed Cyanocobalamin [Vitamin B-12 1,000 mg INJ QMONTH 11/29/18 05/16/23 Injection] Levothyroxine Sodium [Tirosint] 100 mcg PO DAILY 02/13/21 05/16/23 Allergies Allergy/AdvReac Type Severity Reaction Status Date / Time No Known Allergies Allergy Verified 07/10/23 15:12 Review of Systems ROS Statement: Those systems with pertinent positive or pertinent negative responses have been documented in the HPI. ROS Other: All systems not noted in ROS Statement are negative. Past Medical History Past Medical History: Blood Disorder, Diabetes Mellitus, GERD/Reflux, Hypertension, Sleep Apnea/CPAP/BIPAP, Thyroid Disorder Additional Past Medical History / Comment(s): MIGRAINES, RLS, USES C-PAP., STAT ES TREATED FOR H -PYLORI. , DDD ., PT STATES SOB WITH EXERTION. ANEMIA. History of Any Multi-Drug Resistant Organisms: None Reported Past Surgical History: Bariatric Surgery, Section, Cholecystectomy, Tubal Ligation Additional Past Surgical History / Comment(s): Gastric bypass Past Anesthesia/Blood Transfusion Reactions: Motion Sickness, Postoperative Nausea & Vomiting (PONV) Additional Past Anesthesia/Blood Transfusion Reaction / Comment(s): . Past Psychological History: ADD/ADHD, Depression Smoking Status: Never smoker Past Alcohol Use History: None Reported Past Drug Use History: None Reported - Past Family History Father Family Medical History: No Reported History Additional Family Medical History / Comment(s): of kidney failure General Exam Limitations: no limitations General appearance: alert, in no apparent distress, obese Eye exam: Present: PERRL, EOMI ENT exam: Present: mucous membranes moist Neck exam: Present: normal inspection Respiratory exam: Present: normal lung sounds bilaterally Cardiovascular Exam: Present: regular rate, normal rhythm GI/Abdominal exam: Present: soft Extremities exam: Present: other (Strength and sensation equal and intact in bilateral upper and lower extremity.) Neurological exam: Present: alert, oriented X3, CN II-XII intact Skin exam: Present: warm, dry Course Vital Signs 07/10/23 07/10/23 07/10/23 15:11 17:00 18:53 Temperature 98.2 F 98 F 97.9 F Pulse Rate 77 74 78 Respiratory 18 16 16 Rate Blood Pressure 133/68 132/79 135/83 O2 Sat by Pulse 99 98 97 Oximetry 07/10/23 20:02 Temperature Pulse Rate 81 Respiratory 18 Rate Blood Pressure 143/81 O2 Sat by Pulse 98 Oximetry Medical Decision Making - Medical Decision Making Was pt. sent in by a medical professional or institution (, PA, CRICKET COACH, urgent care, hospital, or long-term...) When possible be specific @ -No Did you speak to anyone other than the patient for history (EMS, parent, family, police, friend...)? What history was obtained from this source @ -No Did you review nursing and triage notes (agree or disagree)? Why? @ -I reviewed and agree with nursing and triage notes Were old charts reviewed (outside hosp., previous admission, EMS record, old EKG, old radiological studies, urgent care reports/EKG's, long-term records)? Report findings @ -No old charts were reviewed Differential Diagnosis (chest pain, altered mental status, abdominal pain women, abdominal pain men, vaginal bleeding, weakness, fever, dyspnea, syncope, headache, dizziness, GI bleed, back pain, seizure, CVA, palpatations, mental health, musculoskeletal)? @ -Differential Headache: Migraine, tension, cluster, carbon monoxide, central venous thrombosis, pension karma temporal arteritis, acute closure glaucoma, intercranial hemorrhage, mastoiditis, sinusitis, head injury, this is not meant to be an all-inclusive list. EKG interpreted by me (3pts min.). @ -As above X-rays interpreted by me (1pt min.). @ -None done CT interpreted by me (1pt min.). @ -CT brain without contrast and CTA neck and had show no evidence of acute process. U/S interpreted by me (1pt. min.). @ -None done What testing was considered but not performed or refused? (CT, X-rays, U/S, labs)? Why? @ -None What meds were considered but not given or refused? Why? @ -None Did you discuss the management of the patient with other professionals (professionals i.e. Dr., PA, CRICKET COACH, lab, RT, psych nurse, social science manager, binding printer, teacher, audit officer, hospice case manager)? Give summary @ -No Was smoking cessation discussed for >3mins.? @ -No Was critical care preformed (if so, how long)? @ -No Were there social determinants of health that impacted care today? How? (Homelessness, low income, unemployed, alcoholism, drug addiction, transportation, low edu. Level, literacy, decrease access to med. care, care home, rehab)? @ -No Was there de-escalation of care discussed even if they declined (Discuss DNR or withdrawal of care, Hospice)? DNR status @ -No What co-morbidities impacted this encounter? (DM, HTN, Smoking, COPD, CAD, Cancer, CVA, ARF, Chemo, Hep., AIDS, mental health diagnosis, sleep apnea, morbid obesity)? @ -None Was patient admitted / discharged? Hospital course, mention meds given and route, prescriptions, significant lab abnormalities, going to OR and other pertinent info. @ -Discharge 33-year-old female presenting to the ED with a chief complaint of headache for the last 3-4 days that have been intractable with home meds and not consistent with history of migraines. Laboratory studies including CBC, CMP, UA, CRP largely unremarkable. Computed tomography scan performed due to current headache being intractable with new features compared to history of migraines. Charlie tionally, patient notes history of recent chiropractic neck manipulation. Review of these studies showed no acute process. Patient had improvement of symptoms in the ED. Patient discharged home in stable condition. Discussed return precautions with patient who verbalizes agreement. Undiagnosed new problem with uncertain prognosis? @ -No Drug Therapy requiring intensive monitoring for toxicity (Heparin, Nitro, Insulin, Cardizem)? @ -No Were any procedures done? @ -No Diagnosis/symptom? @ -Headache Acute, or Chronic, or Acute on Chronic? @ -Acute Uncomplicated (without systemic symptoms) or Complicated (systemic symptoms)? @ -Uncomplicated Side effects of treatment? @ -No Exacerbation, Progression, or Severe Exacerbation? @ -No Poses a threat to life or bodily function? How? (Chest pain, USA, NV, pneumonia, PE, COPD, DKA, ARF, appy, cholecystitis, CVA, Diverticulitis, Homicidal, Suicidal, threat to staff... and all critical care pts) @ -No - Lab Data Result diagrams: 07/10/23 17:07/10/23 17: Lab Results 07/10/23 07/10/23 07/10/23 Range/Units 17:01 17:01 17:01 WBC 8.6 (3.8-10.6) k/uL RBC 5.07 (3.80-5.40) m/uL Hgb 14.2 (11.4-16.0) gm/dL Hct 42.4 (34.0-46.0) % MCV 83.5 (80.0-100.0) fL MCH 28.0 (25.0-35.0) pg MCHC 33.5 (31.0-37.0) g/dL RDW 17.3 H (11.5-15.5) % Plt Count 253 (150-450) k/uL MPV 7.9 Neutrophils % 54 % Lymphocytes % 38 % Monocytes % 3 % Eosinophils % 2 % Basophils % 0 % Neutrophils # 4.7 (1.3-7.7) k/uL Lymphocytes # 3.3 (1.0-4.8) k/uL Monocytes # 0.3 (0-1.0) k/uL Eosinophils # 0.2 (0-0.7) k/uL Basophils # 0.0 (0-0.2) k/uL Anisocytosis Slight Sodium 138 (137-145) mmol/L Potassium 4.1 (3.5-5.1) mmol/L Chloride 102 (98-107) mmol/L Carbon Dioxide 27 (22-30) mmol/L Anion Gap 9 mmol/L BUN 14 (7-17) mg/dL Creatinine 0.47 L (0.52-1.04) mg/dL Est GFR (CKD-EPI)AfAm >90 (>60 ml/min/1.73 sqM) Est GFR (CKD-EPI)NonAf >90 (>60 ml/min/1.73 sqM) Glucose 118 H (74-99) mg/dL Calcium 8.8 (8.4-10.2) mg/dL Total Bilirubin 0.9 (0.2-1.3) mg/dL AST 21 (14-36) U/L ALT 17 (4-34) U/L Alkaline Phosphatase 101 (38-126) U/L C-Reactive Protein 0.8 (<1.0) mg/dL Total Protein 7.2 (6.3-8.2) g/dL Albumin 3.9 (3.5-5.0) g/dL Urine Color Yellow Urine Appearance Clear (Clear) Urine pH 6.0 (5.0-8.0) Ur Specific Vivian 1.028 (1.001-1.035) Urine Protein Negative (Negative) Urine Glucose (UA) 3+ H (Negative) Urine Ketones Negative (Negative) Urine Blood Negative (Negative) Urine Nitrite Negative (Negative) Urine Bilirubin Negative (Negative) Urine Urobilinogen 2.0 (<2.0) mg/dL Ur Leukocyte Esterase Negative (Negative) Disposition Clinical Impression: Headache Disposition: HOME SELF-CARE Condition: Good Additional Instructions: Please return to the Emergency Department if symptoms worsen or any other concerns. Is patient prescribed a controlled substance at d/c from ED?: No Referrals: Anshu Ritter DO [Primary Care Provider] - 1-2 days Time of Disposition: 20:48
[2023-07-10 17:45] LABS: Appearance,Urine Clear (Clear); Bilirubin,Urine Negative (Negative); Blood,Urine Negative (Negative); Color,Urine Yellow; Glucose,Urine (UA) 3+ (Negative); Ketones,Urine Negative (Negative); Leukocyte Esterase,Urine Negative (Negative); Nitrite,Urine Negative (Negative); Protein,Urine Negative (Negative); Specific Gravity,Urine 1.028 (1.001-1.035)
[2023-07-10 17:54] LABS: ALT 17 U/L (4-34); AST 21 U/L (14-36); African American GFR (CKD) >90 (>60 ml/min/1.73 sqM); Albumin 3.9 g/dL (3.5-5.0); Alkaline Phosphatase 101 U/L (38-126); Anion Gap 9 mmol/L; Blood Urea Nitrogen 14 mg/dL (7-17); C Reactive Protein 0.8 mg/dL (<1.0); Calcium 8.8 mg/dL (8.4-10.2); Carbon Dioxide 27 mmol/L (22-30); Chloride 102 mmol/L (98-107); Glucose 118 mg/dL (74-99); Non-African American GFR(CKD) >90 (>60 ml/min/1.73 sqM); Potassium 4.1 mmol/L (3.5-5.1); Sodium 138 mmol/L (137-145); Total Bilirubin 0.9 mg/dL (0.2-1.3); Total Protein 7.2 g/dL (6.3-8.2)
--- NOTE | 2023-07-10 19:32 | CT ---
EXAMINATION TYPE: CT brain wo con CT DLP: 1114.7 mGycm, Automated exposure control for dose reduction was used. DATE OF EXAM: 07/10/2023 7:13 PM COMPARISON: 11/09/2013 CLINICAL INDICATION:Female, 43 years old with history of Headache, Headache TECHNIQUE: Brain: Axial CT images of the brain were obtained with coronal and sagittal reformats created and rev iewed. Contrast used: None. Oral contrast used: None. FINDINGS: Brain: Extra-axial spaces: No abnormal extra-axial fluid collections. Ventricular system: Within normal limits Cerebral parenchyma: No acute intraparenchymal hemorrhage or mass effect. The posada-white junction is well differentiated. Cerebellum: Unremarkable. Mass effect: No evidence of midline shift. Intracranial vasculature: unremarkable Soft tissues: Normal. Calvarium/osseous structures: No depressed skull fracture. Paranasal sinuses and mastoid air cells: Mild scattered paranasal sinus disease. Visualized orbits: Orbital contents are intact. IMPRESSION: No acute intracranial process.
--- NOTE | 2023-07-10 20:08 | CT ---
EXAMINATION TYPE: CT angio head neck CT DLP: 852.3 mGycm, Automated exposure control for dose reduction was used. DATE OF EXAM: 07/10/2023 7:38 PM COMPARISON: CT brain 07/10/2023. CLINICAL INDICATION:Female, 43 years old with history of intractable SANTACRUZ hx of recent neck manipulatio n; PHH, Intractable SANTACRUZ, Hx of recent neck manipulation TECHNIQUE: Axially acquired helical CT angiogram of the head and neck was obtained with contrast. Axi al images are supplemented with 3D reconstructions [facility] NASCET criteria used. Contrast used:65 ml mL of Isovue 370 without and with IV Contrast, Oral contrast used: None. FINDINGS: CTA HEAD: No evidence of acute intracranial hemorrhage, mass effect, or midline shift. The ventricles, sulci, a nd cisterns are unremarkable. Mucosal thickening with complete opacification of right proximal or sin us. The visualized portions of the internal carotid arteries, middle cerebral arteries, anterior cerebral arteries, and posterior cerebral arteries are patent. origin of the right posterior cerebellar artery. Hypoplastic left posterior commuting artery. The basilar and vertebral arteries are patent. Dominant left and diminutive right. CTA NECK: Right Carotid System: The common carotid artery and external carotid artery are patent. The carotid bifurcation demonstrate s no evidence of hemodynamically significant stenosis. The remaining portions of the internal carotid artery demonstrate normal size without significant narrowing. Left Carotid System: The common carotid artery and external carotid artery are patent. The carotid bifurcation demonstrate s no evidence of hemodynamically significant stenosis. The remaining portions of the internal carotid artery demonstrate normal size without significant narrowing. Vertebral arteries are patent without evidence hemodynamically significant stenosis. Dominant left ve rtebral artery. There is a 4-vessel aortic arch. The origins of the great vessels are patent. No evidence of hemodyna mically significant stenosis. IMPRESSION: 1. No evidence of dissection of the cervical internal carotid arteries or vertebral arteries or any e vidence of significant stenosis at the carotid bifurcations. 2. No evidence of intracranial high-grade stenosis or intracranial aneurysm. 3. The nasal sinus disease with complete opacification of the right maxillary sinus
[2023-07-10 20:11] VITALS: BP 143/81; PULSE 81; RESP 18
[2023-07-10] MEDS ORDERED: ACETAMINOPHEN TAB 500 MG TAB PO STA (20:43)
[2023-07-10] MEDS ORDERED: ACET/COD 300 MG/30 MG STARTER PACK 6 TAB BTL PO STA (20:48)
[2023-07-10 21:16] VITALS: TEMP 98
[2023-07-10 23:00] LABS: Erythrocyte Sedimentation Rate 41 mm/Hr (0-20)
== END 2023-07-10 21:12 | disposition home or self-care (01) ==
LOC: EC 15:09
DX: G43.909 Migraine, unspecified, not intractable, without status migrainosus (principal); E11.9 Type 2 diabetes mellitus without complications; I10 Essential (primary) hypertension; E07.9 Disorder of thyroid, unspecified; F32.A Depression, unspecified; Z79.890 Hormone replacement therapy; Z79.899 Other long term (current) drug therapy
CPT/HCPCS: 36415; 80053; 85652; 85025; 86140; 81003; 70496; 70450; 70498; 99284; 96374; 96375 ×2; 96361 ×2; J1200; J2405; J1885; Q9967

== ENCOUNTER → 2023-11-21 | Outpatient (CLI) | payer OTHER ==
[2023-11-21 15:55] LABS: Basophils # (A) 0.02 X 10*3/uL (0.00-0.10); Basophils % (A) 0.5 %; Eosinophils # (A) 0 X 10*3/uL (0.04-0.35); Eosinophils % (A) 0 %; HCT 39.4 % (37.2-46.3); HGB 12.4 g/dL (12.0-15.0); Immature Grans, Automated 0 %; Lymphocytes # (A) 1.51 X 10*3/uL (0.90-5.00); Lymphocytes % (A) 39.5 %; MCH 25.7 pg (27.0-32.0); MCHC 31.5 g/dL (32.0-37.0); MCV 81.6 FL (80.0-97.0); Mean Platelet Volume 10.8 FL (9.5-12.2); Monocytes # (A) 0.46 X 10*3/uL (0.20-1.00); NRBC Per 100 WBC 0 X 10*3/uL (0.00-0.01); Neutrophils # (A) 1.83 X 10*3/uL (1.80-7.70); Platelet Count 263 X 10*3/uL (140-440); RBC 4.83 X 10*6/uL (4.10-5.20); RDW 13.4 % (11.5-14.5); WBC 3.82 X 10*3/uL (4.50-10.00)
[2023-11-21 16:19] LABS: ALT 18 U/L (8-44); AST 21 U/L (13-35); Albumin 4.3 g/dL (3.8-4.9); Albumin/Globulin Ratio 1.39 Ratio (1.60-3.17); Alkaline Phosphatase 133 U/L (41-126); Calcium 9.2 mg/dL (8.7-10.3); Carbon Dioxide 25.7 mmol/L (21.6-31.8); Chloride 102 mmol/L (96-109); Chol/HDL Ratio 2.86 Ratio; Ferritin 12.9 ng/mL (10.0-291.0); Globulin 3.1 g/dL (1.6-3.3); Glucose 134 mg/dL (70-110); Iron 34 UG/DL (50-170); LDL Cholesterol,Calculated 90.3 mg/dL (0.0-131.0); Sodium 139 mmol/L (135-145); T4, Free (Free Thyroxine) 1.31 ng/dL (0.80-1.80); Total Bilirubin 0.9 mg/dL (0.3-1.2); Total Protein 7.4 g/dL (6.2-8.2)
== END | disposition home or self-care (01) ==
LOC: LABWHC1 08:20
PROVIDERS: ATTEND Family Medicine
DX: E11.9 Type 2 diabetes mellitus without complications (principal); E03.8 Other specified hypothyroidism; E53.8 Deficiency of other specified B group vitamins; D50.9 Iron deficiency anemia, unspecified
CPT/HCPCS: 36415; 80053; 80061; 82607; 82728; 83036; 83540; 84439; 84443; 84481; 85025

== ENCOUNTER → 2024-01-18 | Outpatient (CLI) | payer OTHER ==
--- NOTE | 2024-01-22 20:42 | MM ---
Reason for Exam: Screening (asymptomatic). Baseline mammogram. Patient History: Menarche at age 10. First Full-Term at age 16. Patient used Hormonal Contraceptives for 3 years. Paternal aunt had breast cancer. Last menstrual period: 01/11/2023 Risk Values: Kristyn 5 year model risk: 0.6%. NCI Lifetime model risk: 7.0%. Prior Study Comparison: Patient's first Mammogram. Tissue Density: There are scattered areas of fibroglandular density. Findings: Analyzed By CAD. No significant mass, suspicious microcalcification, or other discrete abnormality is seen. Overall Assessment: Negative, BI-RAD 1 Management: Screening Mammogram of both breasts in 1 year. . Patient should continue monthly self-breast exams. A clinical breast exam by your physician is recommended on an annual basis. This exam should not preclude additional follow-up of suspicious palpable abnormalities. Note on Kristyn scores and lifetime risk: 1. A Kristyn score greater than 3% is considered moderate risk. If this is the case, consider specialist referral to assess eligibility for a risk reducing agent. 2. If overall lifetime risk for the development of breast cancer is 20% or higher, the patient may qualify for future screening with alternating mammogram and breast MRI. Electronically signed and approved by: Luciana Rubi M.D. Radiologist
== END | disposition home or self-care (01) ==
LOC: RADMAMWWP 16:26
PROVIDERS: ATTEND Family Medicine
DX: Z12.31 Encounter for screening mammogram for malignant neoplasm of breast (principal); Z80.3 Family history of malignant neoplasm of breast
CPT/HCPCS: 77063; 77067

== ENCOUNTER → 2024-02-27 | Outpatient (CLI) | payer OTHER ==
--- NOTE | 2024-02-27 18:21 | XR ---
EXAMINATION TYPE: XR lumbar spine 2 or 3V DATE OF EXAM: 02/27/2024 5:18 PM CLINICAL INDICATION:Female, 44 years old with history of M54.50 M25.551 LOW BACK PAIN, UNSPECIFIED PA IN [place]; COMPARISON: None TECHNIQUE: XR lumbar spine 2 or 3V - Frontal, lateral and coned in L5-S1 lateral views of the spine. FINDINGS: No evidence of any acute osseous pathology. No evidence of loss of vertebral body height i s seen. There is normal alignment of the lumbar vertebral bodies. Scattered disc space narrowing. Mul tilevel marginal osteophyte formation throughout the visualized spine. There is facet joint arthropat hy throughout the spine. Scattered at least mild neural foraminal stenosis worse at L4-L5 and L5-S1. IMPRESSION: 1. No acute fracture. 2. [id number] multilevel disc degeneration.
--- NOTE | 2024-02-27 18:22 | XR ---
EXAMINATION TYPE: XR Hip RT and AP Pelvis DATE OF EXAM: 02/27/2024 5:18 PM CLINICAL INDICATION:Female, 44 years old with history of M54.50 M25.551 LOW BACK PAIN, UNSPECIFIED PA IN [place]; [facility] COMPARISON: 10/29/2022 TECHNIQUE: XR Hip RT and AP Pelvis; hip was examined in the frontal and lateral projections and a AP pelvis. FINDINGS: No evidence for acute process, joint dislocation or significant soft tissue swelling. Osteo phyte formation of the superior acetabulum of the hips. There is mild joint space narrowing. Bilatera l tubal ligation clips. IMPRESSION: 1. No evidence for acute process. 2. Mild bilateral hip osteoarthrosis.
== END | disposition home or self-care (01) ==
LOC: RADXRMAIN 16:56
PROVIDERS: ATTEND Nurse Practitioner Family
DX: M51.36 Other intervertebral disc degeneration, lumbar region (principal); M16.0 Bilateral primary osteoarthritis of hip
CPT/HCPCS: 72100; 73502